=== PATIENT | male | born 1955 | race Caucasian/White ===

== ENCOUNTER 2019-02-03 10:50 | Observation (INO) | payer OTHER ==
--- OUTSIDE RECORDS SUMMARY | 2019-02-03 10:57 | XMS REPORT | Summary of Care ---
:1955 Author Organization [facility] [place] [address] Care Team Providers Name Role Phone Ramesh Otoole MD Subspecialist-[facility] Tommy Oleary MD Primary Care Provider Reason for Visit Reason Comments Follow Up Encounter Details Date Type Department Care Team Description 12/13/2018 Office Visit [facility] Ramesh Otoole MD Follow Up Medicine Urology [address] [place] [address] [address] FLO[address], [address], [place] [address] [place] [id number] Allergies Active Allergy Reactions Severity Noted Date Comments Iodides Swelling 06/03/2014 Iodine 10/19/2011 documented as of this encounter (statuses as of 12/13/2018) Medications Medication Sig Dispensed Refills Start Date End Date Status TRAMADOL HCL 0 Active sildenafil citrate Take 1 Tab by 15 Tab 11 01/08/2015 Active (VIAGRA) 100 MG mouth as tablet needed. tramadol (ULTRAM) 50 Take 1-2 40 Tab 0 01/19/2018 Active MG tablet tablets by mouth every 4-6 hours as needed testosterone Inject 0.6 ml 5 mL 0 09/21/2018 Active enanthate SQ every 7 (DELATESTRYL) 200 days MG/ML injection metoprolol (TOPROL Toprol XL 50 mg tablet,extended release 0 Active XL) 50 MG XL tablet Take 1 tablet every day by oral route. TAKE DAILY FOR BLOOD PRESSURE ondansetron (ZOFRAN) Take 1 Tab by 15 Tab 1 12/30/2017 Discontinued 4 MG tablet mouth every 6 9 hours as needed for Nausea. Diclofenac Sodium Place 3 g onto 100 g 1 01/05/2018 Discontinued (VOLTAREN) 1 % GEL the skin 3 9 times daily. cyclobenzaprine Take 1 Tab by 30 Tab 0 01/19/2018 Discontinued (FLEXERIL) 10 MG mouth 3 times 9 tablet daily as needed for Muscle spasms. documented as of this encounter (statuses as of 12/13/2018) Active Problems Problem Noted Date Rotator cuff tear 10/04/2017 Phimosis 08/29/2012 Nephrolithiasis 11/13/2011 Hematuria 10/19/2011 documented as of this encounter (statuses as of 12/13/2018) Social History Tobacco Use Types Packs/Day Years Used Date Never Smoker Smokeless Tobacco: Never Used Alcohol Use Drinks/Week oz/Week Comments No Sex Assigned at Date Recorded Not on file Job Start Date Occupation Industry Not on file Not on file Not on file Travel History Travel Start Travel End No recent travel history available. documented as of this encounter Last Filed Vital Signs Vital Sign Reading Time Taken Comments Blood Pressure 166/91 12/13/2018 9:59 AM CDT Pulse - - Temperature - - Respiratory Rate - - Oxygen Saturation - - Inhaled Oxygen Concentration - - Weight - - Height - - Body Mass Index - - documented in this encounter Progress Notes Ramesh Otoole MD - 12/13/2018 9:20 AM CDTI have seen and examined the patient with Kailash Mathews. I agree with the assessment and plan. I have the counseled the patient and will follow- up with lab and next steps. Johann Narvaez PA - 12/13/2018 9:20 AM CDT Referring Physician Blanco Guillaume [address] [place], [place] [id number] Patient Name: Thor Sims :1955 [facility] ID#:[id number] Mr. Sims is a 63 y.o. year old male who present to me for ED, renal stones, and hypogonaidsm. 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 He is still taking TE (0.6 cc) 120 mg every week and is compliant. States headaches resolved with the TTh. Patient states he is taking Viagra 110mg and is effective. Reports good quality erections. He has a history of nephorlithiaisis and no recurrence since last visit. He reports nocturia x 3 at most. Denies dysuria, hematuria, frequency. States nocturia x 1 if he does not drink tea. No family hx of argon tester. Past Medical History: Diagnosis Date Arthritis, degenerative Cauda equina compression (HCCode) needing a laminectomy in 1997, residual mild neuropathy Head ache Sleep apnea 2012 non compliant with a CPAP machine Past Surgical History: Procedure Laterality Date HX BACK SURGERY 1997 Medications: Current Outpatient Medications: cyclobenzaprine (FLEXERIL) 10 MG tablet, Take 1 Tab by mouth 3 times daily as needed for Musclespasms., Disp: 30 Tab, Rfl: 0 Diclofenac Sodium (VOLTAREN) 1 % GEL, Place 3 g onto the skin 3 times daily., Disp: 100 g, Rfl:1 ondansetron (ZOFRAN) 4 MG tablet, Take 1 Tab by mouth every 6 hours as needed for Nausea., Disp: 15 Tab, Rfl: 1 sildenafil citrate (VIAGRA) 100 MG tablet, Take 1 Tab by mouth as needed., Disp: 15 Tab, Rfl: 11 testosterone enanthate (DELATESTRYL) 200 MG/ML injection, Inject 0.6 ml SQ every 7 days, Disp: 5 mL, Rfl: 0 tramadol (ULTRAM) 50 MG tablet, Take 1-2 tablets by mouth every 4-6 hours as needed, Disp: 40 Tab, Rfl: 0 TRAMADOL HCL, , Disp: , Rfl: Outpatient Medications Prior to Visit Medication Sig Dispense Refill cyclobenzaprine Take 1 Tab by mouth 3 times daily as needed for Muscle spasms. 30 Tab [address] 3 g onto the skin 3 times daily. 100 g 1 ondansetron Take 1 Tab by mouth every 6 hours as needed for Nausea. 15 Tab 1 sildenafil citrate Take 1 Tab by mouth as needed. 15 Tab 11 testosterone enanthate Inject 0.6 ml SQ every 7 days 5 mL 0 tramadol Take 1-2 tablets by mouth every 4-6 hours as needed 40 Tab 0 TRAMADOL HCL No facility-administered medications prior to visit. Social History Socioeconomic History Marital status: Spouse name: Not on file Number of children: Not on file Years of education: Not on file Highest education level: Not on file Occupational History Not on file Social Needs Financial resource strain: Not on file Food insecurity: Worry: Not on file Inability: Not on file Transportation needs: Medical: Not on file Non-medical: Not on file Tobacco Use Smoking status: Never Smoker Smokeless tobacco: Never Used Substance and Sexual Activity Alcohol use: No Drug use: No Sexual activity: Not on file Lifestyle Physical activity: Days per week: Not on file Minutes per session: Not on file Stress: Not on file Relationships Social connections: Talks on phone: Not on file Gets together: Not on file Attends nondenominational service: Not on file Active member of club or organization: Not on file Attends meetings of clubs or organizations: Not on file Relationship status: Not on file Intimate partner violence: Fear of current or ex partner: Not on file Emotionally abused: Not on file Physically abused: Not on file Forced sexual activity: Not on file Other Topics Concerns: Not on file Social History Narrative 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 Children are grown and healthy and have moved out of his home. family history includes Brain cancer (age of onset: 62) in his father; Heart Attack (age of onset: 62) in his brother; Unremarkable (age of onset: 79) in his mother. Allergies Allergen Reactions Iodides Swelling Iodine Review of Systems: GENERAL: Denies recent weight changes, fever, weakness, fatigue, headaches INTEGUMENTARY: Denies rashes, eruptions, dryness, jaundice, changes in skin, hair, or nails, discoloration of skin. EYES: Denies blurred vision, double vision, pain EARS, NOSE, MOUTH AND THROAT: Denies soreness and/or redness of gums, hoarseness, difficulty in swallowing, head colds, discharges, obstruction, postnasal drip, sinus pain, earaches. MUSCULOSKELATAL: Denies joint pain, neck pain, back pain RESPIRATORY: Denies chest pain, wheezing, cough, difficulty breathing, asthma, bronchitis, pneumonia, tuberculosis, shortness of breath, emphysema NEUROLOGIC: Denies fainting, blackouts, seizures, paralysis, tingling, tremors, memory loss , dizzy spells, stroke CARDIOVASCULAR: Denies chest pain, rheumatic fever, rapid heart beat, high blood pressure, swelling, dizziness, faintness, varicose veins, heart valve problems. ENDOCRINE: Denies thyroid trouble, fatigue, heat and cold intolerance, excessive sweating, thirst, hunger GASTROINTESTINAL: Denies nausea, vomiting, diarrhea, constipation, indigestion, food intolerance, hemorrhoids, jaundice, heartburn, diabetes, hepatitis GENITOURINARY: As per HPI HEMATOLOGIC/LYMPHATIC: Denies anemia, easy bruising or bleeding, past transfusion, swollen glands, blood clotting problems PSYCHOLOGIC: Denies nervousness, mood swings, insomnia, headaches, nightmares, depression ALLERGY/IMMUNOLOGIC: Denies food allergies, plant allergies, environmental allergies OTHER: Denies HIV/AIDS Physical Exam: Vitals: 12/13/18 0959 BP: (!) 166/91 BP Location: right arm Patient Position: Sitting Cuff Size: regular GENERAL: Well developed, well nourished, in no acute distress HEAD: Normocephalic and atraumatic SKIN: Intact without lesions or rashes BIANCA: 40 gram prostate, no asymmetry, nodules, or induration, normal external anal sphincter tone NEURO: CARRION well. Patient alert and oriented x3. PSYCH: Alert and cooperative; normal mood and affect; normal attention span and concentration Most Recent Labs: Recent Results (from the past 4032 hour(s)) TESTOSTERONE, FREE/TOTAL SHGB Collection Time: 07/25/18 9:08 AM Result Value Ref Range TESTOSTERONE LEVEL 1,236 (H) 300 - 720 NG/DL SEX HORMONE BINDING GLOBULIN 40.7 19.3 - 76.4 NMOL/L CALC FREE TESTOSTERONE 280.5 (H) 47.0 - 244.0 PG/ML HEMOGLOBIN AND HEMATOCRIT, BLOOD Collection Time: 07/25/18 9:08 AM Result Value Ref Range HEMOGLOBIN 15.5 13.0 - 17.0 G/DL HEMATOCRIT 47.3 37.0 - 49.0 % Assessment: Gross hematuria ED Hypogonaidsm BPH Plan: -Refill Tadalafil 7 mg QD > [facility] -Refill Sildenafil 110 mg on demand > [facility] -TE (0.75cc) 150 mg every week > [facility] T,ft,e, psa f/h, A1c, H/H FU in 6 months CHAI vEans, PA-C 12/13/2018 documented in this encounter Plan of Treatment Name Type Priority Associated Diagnoses Order Schedule TESTOSTERONE-TOTAL(URO Lab Routine Hypogonadism male Expected: 12/27/2018 DEPT) Hypogonadism in male (Approximate), Malaise and fatigue Expires: 01/12/2019 Male hypogonadism SHBG(URO DEPT) Lab Routine Hypogonadism male Expected: 12/27/2018 Hypogonadism in male (Approximate), Malaise and fatigue Expires: 01/12/2019 Male hypogonadism ESTRADIOL(URO DEPT) Lab Routine Hypogonadism male Expected: 12/27/2018 Hypogonadism in male (Approximate), Malaise and fatigue Expires: 01/12/2019 Male hypogonadism PSA TOTAL(URO DEPT) Lab Routine Hypogonadism male Expected: 12/27/2018 Hypogonadism in male (Approximate), Malaise and fatigue Expires: 01/12/2019 Male hypogonadism HEMOGLOBIN AND Lab Routine Hypogonadism male Ordered: 12/13/2018 HEMATOCRIT, BLOOD Hypogonadism in male Malaise and fatigue Male hypogonadism HEMOGLOBIN A1C Lab Routine Hypogonadism male Ordered: 12/13/2018 Hypogonadism in male Malaise and fatigue Male hypogonadism Health Maintenance Due Date Last Done Comments COLON CANCER SCREENING: COLONOSCOPY 1955 MEDICARE AWV 1955 BMI FOLLOW UP PLAN 02/22/1974 HEPATITIS C SCREENING 02/22/1974 HIV SCREENING 02/22/1974 FLU VACCINE > 6 MONTHS 10/20/2018 TETANUS SHOT (ADULT) 12/29/2025 12/30/2015 documented as of this encounter Results Not on filedocumented in this encounter Visit Diagnoses Diagnosis Hypogonadism male - Primary Other testicular hypofunction Hypogonadism in male Malaise and fatigue Other malaise and fatigue Male hypogonadism Other testicular hypofunction documented in this encounter Insurance Payer Benefit Plan / Subscriber ID Effective Dates Phone Address Type Group MEDICARE MEDICARE PART A xxxxxxxxxx 2013-Present [address] Medicare [place] [address] documented as of this encounter
--- OUTSIDE RECORDS SUMMARY | 2019-02-03 10:57 | XMS REPORT ---
:1955 [facility] Address [address] [place] [address] Care Team Providers Name Role Phone DEMARCO OSWALD Unavailable Unavailable Problems This patient has no known problems. Allergies, Adverse Reactions, Alerts This patient has no known allergies or adverse reactions. Medications This patient has no known medications. Results Test Description Test Time Test Comments Text Results Atomic Results Result Comments ELECTROLYTES 2017-12-27 09:19:00 Test Item Value Reference Range Comments SODIUM (BEAKER) (test aucd=878) 140 meq/L 136-145 POTASSIUM (BEAKER) (test nhmv=929) 4.9 meq/L 3.5-5.1 CHLORIDE (BEAKER) (test giok=337) 103 meq/L 98-107 CO2 (BEAKER) (test ctzq=226) 29 meq/L 22-29 BUN AND [id number] 09:19:00 Test Item Value Reference Range Comments BLOOD UREA NITROGEN 12 mg/dL 7-21 (BEAKER) (test uoit=580) CREATININE (BEAKER) (test 1.09 mg/dL 0.57-1.25 ctob=709) EGFR (BEAKER) (test 69 mL/min/1.73 sq m ESTIMATED GFR IS NOT vggm=5497) ACCURATE CREATININE CLEARANCE IN PREDICTING GLOMERULAR FILTRATION RATE. ESTIMATED GFR IS NOT APPLICABLE FOR DIALYSIS PATIENTS. [id number] 09:01:00 Test Item Value Reference Range Comments HEMOGLOBIN (BEAKER) (test sibp=236) 16.9 GM/DL 13.7-17.5
--- OUTSIDE RECORDS SUMMARY | 2019-02-03 10:57 | XMS REPORT | Encounter Summary ---
:1955 Author Care Team Providers Name Role Phone Tommy Oleary MD Primary Care Provider [phone] Reason for Visit new patient Instructions 1. Benign essential hypertension high blood pressure: care instructions learning about high blood pressure CMP, serum or plasma CBC w/ auto diff lipid panel, serum benazepril 20 mg tablet 2. Chronic back pain greater than three months duration tramadol 50 mg tablet 3. Screening for malignant neoplasm of colon general surgery referral 4. History of calculus of kidney PSA, serum or plasma 5. Chronic headache disorder Discussion Note: None recorded. Plan of Care Reminders Provider Appointments Return to on or around Tommy Oleary MD Office 06/13/2018 Lab CMP, Serum 06/06/2018 [place] or Plasma [facility] (Lab) CBC W/ Auto 06/06/2018 [place] Diff [facility] (Lab) Lipid 06/06/2018 [place] Panel, Serum [facility] (Lab) PSA, Serum 06/06/2018 [place] or Plasma [facility] (Lab) Referral General 06/02/2018 Jlu[facility] Mendo[facility] II Surgery Referral Procedures None recorded. Surgeries None recorded. Imaging None recorded. Medications Name Start Date benazepril 20 mg tablet Take 2 tablets every day by oral route. take for blood pressure tramadol 50 mg tablet Take 2 tablets every day by oral route. Medications Administered None recorded. Vitals Height Weight BMI Blood Pressure 67 in 207 lbs 16 oz 32.6 kg/m2 160/82 mm[Hg] Lab Results None recorded. Allergies Code Code System Name Reaction Severity Status Onset 5933 RxNorm Iodine Other Active Problems Name Status Onset Date Source Essential Hypertension Active 05/17/2018 Benign Essential Hypertension Active 05/17/2018 Chronic Back Pain Greater than Three Months Active 05/17/2018 Duration Chronic Headache Disorder Active 05/17/2018 History of Calculus of Kidney Active 05/17/2018 Screening for Malignant Neoplasm of Colon Active 05/17/2018 Procedures Date Name Performed by Back Surgery Information not available Shoulder Surgery Procedure Information not available Vaccine List None recorded. Social History Smoking Status Never Smoker Past Encounters 05/17/2018 Benign Essential Hypertension; Chronic Back Pain Greater than Three Months Duration; Screening for Malignant Neoplasm of Colon; History of Calculus of Kidney; Chronic Headache Disorder Tommy Oleary MD: [address] [place] [address], [address], [place] [address], Ph. 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<div>non smoker no drinker</div><div>needs c scope </div><div>does not take flu shot</div><div> recent left shoulder surg for torn rotator cuff</div><div>back surg 15 yr ago</div><div>CC htnb</div><div>hpi x 10 yrs on meds needs to monitor</div><div>CC chronic headaches</div>< div>hpi when found to have low testosterone started taking shots and cured his headaches</div><div>CC seasonal allergies</div><div> [place] uses honey prn</div><div>ros</div><div>gen healthy </div& gt;<div>cv above</div><div>resp neg</div><div>gi neg</div><div>guneg</div><div>m/s above</div> Review of Systems: ROS as noted in the HPI Review of Systems None recorded. Physical Exam Dr. Oleary Brief Adult Exam - M/F Reported By: Patient Constitutional: General Appearance: well-developed, overweight. Level of Distress: NAD. Ambulation: ambulating normally ENMT: Ears: no lesions on external ear, EACs clear, TMs clear, TM mobility normal. Nose: nares patent, nasal passages clear. Oropharynx: moist mucous membranes, no erythema, no exudates, tonsils not enlarged Neck: Neck: supple, trachea midline, no masses, FROM. Lymph Nodes: no cervical LAD, no supraclavicular LAD Lungs: Auscultation: breath sounds normal, good air movement, CTA except as noted, no wheezing, no rales/crackles, no rhonchi Cardiovascular: Heart Auscultation: RRR, no murmurs, no rubs, no gallops. Neck vessels: no carotid bruits Abdomen: Bowel Sounds: normal. Inspection and Palpation: soft, non-distended, no tenderness, no guarding, no rebound tenderness, no masses, no CVA tenderness. Hernia: none palpable
--- OUTSIDE RECORDS SUMMARY | 2019-02-03 10:57 | XMS REPORT | Encounter Summary ---
:1955 Author Care Team Providers Name Role Phone Tommy Oleary MD Primary Care Provider [phone] Reason for Visit medication refill Instructions 1. Essential hypertension amlodipine 5 mg tablet 2. Chronic back pain greater than three months duration tramadol 50 mg tablet Discussion Note: None recorded.Patient educational handouts: No information available. Plan of Care Reminders Provider Appointments Return to on or around Tommy Oleary MD Office 11/22/2018 Return to on or around Tommy Oleary MD Office 11/22/2018 Follow up 12/06/2018 Tommy Oleary MD 8:15AM Return to on or around Tommy Oleary MD Office 12/08/2018 Lab None recorded. Referral None recorded. Procedures None recorded. Surgeries None recorded. Imaging None recorded. Medications Name Start Date amlodipine 5 mg tablet Take 1 tablet every day by oral route. take in addition to the benicar daily for bp stop if causes swelling benazepril 20 mg tablet Take 2 tablets every day by oral route. tramadol 50 mg tablet Take 2 tablets every day by oral route. Medications Administered None recorded. Vitals Height Weight BMI Blood Pressure 67 in 209 lbs 32.7 kg/m2 163/84 mm[Hg] Lab Results None recorded. Allergies Code [...] History Smoking Status Never Smoker Past Encounters 08/22/2018 Essential Hypertension; Chronic Back Pain Greater than Three Months Duration Tommy Oleary MD: [address] [place] [address], [address], [place] [address], Ph. [phone] History of Present Illness Note: here for reg visit<div>cc chronic arthritis pain</div>< div>hpi has c spine andl spine disc problems takes 2 tramadol daily and ecedrin daily has been doing x 10 yrs</div><div>cc seasonal allergies</div><div>hpi uses prn otc meds</div><div>cc htnb</div><div>hpi has been up for yrs is better now since i increased the meds</div><div>ros </div><div>gen stable& lt;/div><div>cv bp high </div><div>resp neg</div>< div>m/s above</div>Review of Systems: ROS as noted in the HPI Review of Systems None recorded. Physical Exam Dr. Oleary Brief Adult Exam - M/F Reported By: Patient Constitutional: General Appearance: healthy-appearing, well-nourished, well-developed. Level of Distress: NAD. Ambulation: ambulating normally Neck: Neck: supple, trachea midline, no masses, FROM. Lymph Nodes: no cervical LAD, no supraclavicular LAD Lungs: Auscultation: breath sounds normal, good air movement, CTA except as noted, no wheezing, no rales/crackles, no rhonchi Cardiovascular: Heart Auscultation: RRR, no rubs, no gallops. Neck vessels: no carotid bruits Musculoskeletal: Edema absent; pain in neck on rom and low back pain without radiculopathy
--- OUTSIDE RECORDS SUMMARY | 2019-02-03 10:57 | XMS REPORT | Encounter Summary ---
:1955 Author Care Team Providers Name Role Phone Tommy Oleary MD Primary Care Provider [phone] Reason for Visit Follow Up Visit Instructions 1. Benign essential hypertension high blood pressure: care instructions learning about high blood pressure Discussion Note: None recorded. Plan of Care Reminders Provider Appointments Follow up 12/06/2018 Tommy Oleary MD 8:15AM Return to on or around Tommy Oleary MD Office 12/08/2018 Lab None recorded. Referral None recorded. Procedures None recorded. Surgeries None recorded. Imaging None recorded. Medications Name Start Date benazepril 20 mg tablet Take 2 tablets every day by oral route. Medications Administered None recorded. Vitals Height Weight BMI Blood Pressure 67 in 202 lbs 16 oz 31.8 kg/m2 148/84 mm[Hg] Lab Results None recorded. Allergies Code [...] History Smoking Status Never Smoker Past Encounters 06/07/2018 Benign Essential Hypertension Tommy Oleary MD: [address] [facility], [address], [place] [address], Ph. 05/17/2018 Benign Essential Hypertension; Chronic Back Pain Greater than Three Months Duration; Screening for Malignant Neoplasm of Colon; History of Calculus of Kidney; Chronic Headache Disorder Tommy Oleary MD: [address] [facility], [address], [place] [address], Ph. History of Present Illness Note: CC htnb<div>hpi here to check bp since increasing meds doing much better and feeling better</div><div>CC elevated "iron</div& gt;<div>HPI urologist states testosterone raising his Hgb so giving blood weekly until < 50 </div><div>ros</div><div> feeling fine</div><div>cv bp improved</div><div>resp neg </div><div>gi neg</div><div>m/s neg</div>Review of Systems: ROS as noted in the [...] Cardiovascular: Heart Auscultation: RRR, no rubs, no gallops
--- OUTSIDE RECORDS SUMMARY | 2019-02-03 10:57 | XMS REPORT | Encounter Summary ---
:1955 Author Care Team Providers Name Role Phone Tommy Oleary MD Primary Care Provider [phone] Reason for Visit Follow Up Visit Instructions 1. Benign essential hypertension high blood pressure: care instructions learning about high blood pressure Toprol XL 50 mg tablet,extended release 2. Chronic back pain greater than three months duration Discussion Note: None recorded. Plan of Care Reminders Provider Appointments Follow up 03/13/2019 Tommy Oleary MD 9:15AM Lab None recorded. Referral None recorded. Procedures None recorded. Surgeries None recorded. Imaging None recorded. Medications Name Start Date benazepril 20 mg tablet Take 2 tablets every day by oral route. testosterone enanthate 200 mg/mL intramuscular oil Toprol XL 50 mg tablet,extended release Take 1 tablet every day by oral route. TAKE DAILY FOR BLOOD PRESSURE tramadol 50 mg tablet TAKE 2 TABLETS BY MOUTH ONCE DAILY Medications Administered None recorded. Vitals Height Weight BMI Blood Pressure 67 in 207 lbs 16 oz 32.6 kg/m2 162/93 mm[Hg] Lab Results None recorded. Allergies Code [...] available Vaccine List None recorded. Social History Tobacco Smoking Status Never Smoker Past Encounters 12/12/2018 Benign Essential Hypertension; Chronic Back Pain Greater than Three Months Duration Tommy Oleary MD: [address] [place] [address] [address], [place] [address], Ph. [phone] History of Present Illness Note: cc HTNB<div>HPI D/RAMSEY THE AMLODIPINE DUE TO SWELLING AND HEADACHE BACK ON THE BENAZOPRIL AND CHECKING BP AT HOME IN THE 150S/80S</div& gt;<div>ROS</div><div>GEN FEELS FINE</div><div>CV ABOVE</div><div>RESP NEG</div>Review of Systems: ROS as noted in the HPI Review of Systems None recorded. Physical Exam Dr. Oleary Brief Adult Exam - M/F Reported By: Patient Constitutional: General Appearance: healthy-appearing, well-nourished, well-developed. Level of Distress: NAD. Ambulation: ambulating normally Lungs: Auscultation: breath sounds normal, good air movement, CTA except as noted, no wheezing, no rales/crackles, no rhonchi Cardiovascular: Heart Auscultation: RRR, no murmurs, no rubs, no gallops. Neck vessels: no carotid bruits
--- OUTSIDE RECORDS SUMMARY | 2019-02-03 10:57 | XMS REPORT | Encounter Summary ---
:1955 Author Care Team Providers Name Role Phone Tommy Oleary MD Primary Care Provider [phone] Reason for Visit Fatigue-sometimes Instructions 1. Seasonal allergy seasonal allergies: care instructions dexamethasone 10 mg/mL injection solution Depo-Medrol 40 mg/mL suspension for injection 2. Benign essential hypertension high blood pressure: care instructions learning about high blood pressure CBC w/ auto diff CMP, serum or plasma lipid panel, serum 3. Strain of back muscle 4. Adult health examination PSA, serum or plasma TSH, serum or plasma hemoglobin A1c, QN, blood Discussion Note: None recorded. Plan of Care Reminders Provider Appointments Follow up Tommy Oleary MD 03/13/2019 9:15AM Lab CBC W/ Auto Beatty Diff 02/02/2019 [facility] (Labs) (Xray) CMP, Serum or Beatty Plasma 02/02/2019 [facility] (Labs) (Xray) Lipid Panel, Beatty Serum 02/02/2019 [facility] (Labs) (Xray) PSA, Serum or Beatty Plasma 02/02/2019 [facility] (Labs) (Xray) TSH, Serum or Beatty Plasma 02/02/2019 [facility] (Labs) (Xray) Hemoglobin Beatty a1C, QN, Blood 02/02/2019 [facility] (Labs) (Xray) Referral None recorded. Procedures None recorded. Surgeries None recorded. Imaging None recorded. Medications Name Start Date benazepril 20 mg tablet Take 2 tablets every day by oral route. hydrochlorothiazide 25 mg tablet Take 1 tablet every day by oral route. testosterone enanthate 200 mg/mL intramuscular oil tramadol 50 mg tablet TAKE 2 TABLETS BY MOUTH ONCE DAILY Medications Administered None recorded. Vitals Height Weight BMI Blood Pressure 67 in 210 lbs 16 oz 33 kg/m2 160/92 mm[Hg] Results Lab Results None recorded. Allergies Code Code System Name Reaction Severity Status Onset 5933 RxNorm Iodine Other Active Problems Name Status Onset Date Source Essential Hypertension Active 05/17/2018 Benign Essential Hypertension Active 05/17/2018 Chronic Back Pain Greater than Three Months Active 05/17/2018 Duration Chronic Headache Disorder Active 05/17/2018 History of Calculus of Kidney Active 05/17/2018 Screening for Malignant Neoplasm of Colon Active 05/17/2018 Seasonal Allergy Active 02/02/2019 Procedures Date Name Performed by Back Surgery Information not available Shoulder Surgery Procedure Information not available Vaccine List None recorded. Social History Tobacco Smoking Status Never Smoker Past Encounters 02/02/2019 Seasonal Allergy; Benign Essential Hypertension; Strain of Back Muscle; Adult Health Examination Tommy Oleary MD: [address] [place] [address] [address], [place] [address], Ph. History of Present Illness Note: CC seasonal allergies<div>hpi head congestion and cough</div& gt;<div>cc htnb</div><div>hpi ok at home only on benazopril now</div><div>ros</div><div>gen above</div><div >cv neg</div><div>resp neg</div><div>gi neg</div& gt;<div>m/s mid back pain</div>Review of Systems: ROS as noted in the HPI Review of Systems None recorded. Physical Exam Dr. Oleary Brief Adult Exam - M/F Reported By: Patient Constitutional: General Appearance: well-developed, overweight. Level of Distress: mild distress. Ambulation: ambulating normally ENMT: Ears: no lesions on external ear, EACs clear, TMs clear, TM mobility normal. Nose: nares patent, nasal passages clear; rhinorrhea and max sinus pressure. Oropharynx: moist mucous membranes, no erythema, no exudates, tonsils not enlarged Lungs: Auscultation: breath sounds normal, good air movement, CTA except as noted, no wheezing, no rales/crackles, no rhonchi Cardiovascular: Heart Auscultation: RRR, no rubs, no gallops Back: Thoracolumbar Appearance: normal curvature; soreness across mid back
[2019-02-03 11:39] LABS: Protime INR 1.03
[2019-02-03 11:54] LABS: Absolute Lymphocytes (CBC) 1.5 K/uL (0.7-4.9); Hematocrit 48.3 % (39.6-49.0); Lymphocytes % 10.3 % (15.3-44.8); RBC Red Blood Cell Count 6.45 M/uL (4.33-5.43)
[2019-02-03 11:55] LABS: Bilirubin Direct 0.2 mg/dL (0-0.2); Bilirubin Total 0.5 mg/dL (0.2-1.0); Magnesium 2.4 mg/dL (1.8-2.4); Potassium 3.7 mmol/L (3.5-5.1); Protein, Total 7.7 g/dL (6.4-8.2); Troponin (Emerg Dept Use Only) 0.02 ng/mL (0.0-0.045)
--- NOTE | 2019-02-03 12:01 | RAD REPORT ---
EXAM DESCRIPTION: Shaheen Single View02/03/2019 11:49 am CLINICAL HISTORY: Chest pain COMPARISON: none FINDINGS: The lungs appear clear of acute infiltrate. The heart is normal size IMPRESSION: No acute abnormalities displayed
[2019-02-03] MEDS ORDERED: ASPIRIN 81 MG CHEWABLE TABLET ONE (12:07)
--- NOTE | 2019-02-03 12:51 | ER ---
Nurse's Notes [facility] Name: Thor Sims Age: 63 yrs Sex: Male : 1955 Arrival Date: 02/03/2019 Time: 10:51 Bed Ultrasound Private MD: Diagnosis: Chest pain, unspecified Presentation: 02/03 11:01 Presenting complaint: Patient states: i was getting dressed this morning and i started tw2 having chest pain and feel short of breath, i have been weak and fatigued for a week or so. Transition of care: patient was not received from another setting of care. Onset of symptoms was February 03, 2019. Risk Assessment: Do you want to hurt yourself or someone else? Patient reports no desire to harm self or others. Initial Sepsis Screen: Does the patient meet any 2 criteria? No. Patient's initial sepsis screen is negative. Does the patient have a suspected source of infection? No. Patient's initial sepsis screen is negative. Care prior to arrival: None. 11:01 Method Of Arrival: Ambulatory tw2 11:01 Acuity: JASON 3 tw2 Triage Assessment: 11:04 General: Appears in no apparent distress. Behavior is quiet. Pain: Complains of pain in tw2 chest. Neuro: Reports weakness fatigue. Cardiovascular: Reports chest pain, shortness of breath. Historical: - Allergies: 11:03 Iodinated Contrast Media - IV Dye; tw2 11:03 Iodine; tw2 - Home Meds: 11:03 testosterone injection, weekly [Active]; "hypertension med" [Active]; tw2 - PMHx: 11:03 Hypertension; tw2 - Immunization history:: Adult Immunizations. - Social history:: Smoking status: Smoking status: Patient/guardian denies using tobacco. - Ebola Screening: : Patient denies travel to an Ebola-affected area in the 21 days before illness onset. Screenin:20 Abuse screen: Denies threats or abuse. Denies injuries from another. Nutritional ca1 screening: No deficits noted. Tuberculosis screening: No symptoms or risk factors identified. Fall Risk IV access (20 points). Assessment: 11:20 General: Appears in no apparent distress. comfortable, Behavior is calm, cooperative, ca1 appropriate for age, Reports fatigue for for 3 weeks now. Pain: Complains of pain in chest Pain radiates to left scapular area and right scapular area Pain currently is 7 out of 10 on a pain scale. Quality of pain is described as heavy, pressure, sharp, Pain began 3 hours ago. Is continuous, Also complains of shortness of breath. Neuro: Level of Consciousness is awake, alert, obeys commands, Oriented to person, place, time, situation, Appropriate for age. Neuro: Reports dizziness, upon standing just this morning. Cardiovascular: Reports palpitations, Heart tones S1 S2 present Capillary refill < 3 seconds Patient's skin is warm and dry. Rhythm is sinus rhythm. Respiratory: Airway is patent Trachea midline Respiratory effort is even, unlabored, Respiratory pattern is regular, symmetrical, Breath sounds are clear bilaterally. GI: Abdomen is round non-distended, Bowel sounds present X 4 quads. Abd is soft and non tender X 4 quads. : No deficits noted. No signs and/or symptoms were reported regarding the genitourinary system. EENT: No deficits noted. No signs and/or symptoms were reported regarding the EENT system. Derm: Skin is intact, is healthy with good turgor, Skin is pink, warm \\T\\ dry. Musculoskeletal: Circulation, motion, and sensation intact. Capillary refill < 3 seconds, Range of motion: intact in all extremities. 12:30 Reassessment: Patient appears in no apparent distress at this time. Patient and/or ca1 family updated on plan of care and expected duration. Pain level reassessed. Patient is alert, oriented x 3, equal unlabored respirations, skin warm/dry/pink. 13:39 Reassessment: Patient appears in no apparent distress at this time. Patient and/or ca1 family updated on plan of care and expected duration. Pain level reassessed. Patient is alert, oriented x 3, equal unlabored respirations, skin warm/dry/pink. 13:50 Reassessment: Called for report. Nurse will call back. ca1 14:03 Reassessment: Patient appears in no apparent distress at this time. Patient and/or ca1 family updated on plan of care and expected duration. Pain level reassessed. Patient is alert, oriented x 3, equal unlabored respirations, skin warm/dry/pink. Vital Signs: 11:04 BP 141 / 76; Pulse 92; Resp 17; Temp 97.9(O); Pulse Ox 98% on R/A; Weight 95.71 kg (R); tw2 Pain 5/10; 12:00 BP 137 / 73; Pulse 79; Resp 17 S; Pulse Ox 97% on R/A; ca1 13:00 BP 138 / 82; Pulse 82; Resp 17 S; Pulse Ox 100% on R/A; ca1 14:03 BP 139 / 83; Pulse 76; Resp 17 S; Pulse Ox 97% on R/A; ca1 ED Course: 10:51 Patient arrived in ED. as 11:02 Triage completed. tw2 11:02 Arm band placed on. tw2 11:06 EKG done, by bindery library technical assistant. reviewed by Karson Brunson MD. at1 11:14 Ligia Li RN is Primary Nurse. ca1 11:20 Patient has correct armband on for positive identification. Placed in gown. Bed in low ca1 position. Call light in reach. Side rails up X 1. secured entrance monitor on. Pulse ox on. NIBP on. Warm blanket given. 11:20 No provider procedures requiring assistance completed. Patient maintains SpO2 ca1 saturation greater than 95% on room air. 11:24 Initial lab(s) drawn, by fl, sent to lab. Inserted saline lock: 20 gauge in left ms forearm, using aseptic technique. Blood collected. 11:49 Yuli Lemus FNP-C is [facility]. snw 11:49 Karson Brunson MD is Attending Physician. snw 11:50 XRAY Chest (1 view) In Process Unspecified. EDMS 12:50 Simon Preciado MD is Hospitalizing Provider. snw 13:39 Patient admitted, IV remains in place. ca1 14:09 Primary Nurse role handed off by Ligia Li RN ca1 Administered Medications: 12:12 Drug: Aspirin Chewable Tablet 324 mg Route: PO; ca1 13:48 Follow up: Response: No adverse reaction ca1 Outcome: 12:51 Decision to Hospitalize by Provider. snw 14:07 Admitted to Tele accompanied by tech, via wheelchair, room 428, with chart, Report ca1 called to OSWALDO Velazquez 14:07 Condition: stable 14:07 Instructed on the need for admit. 14:08 Patient left the ED. ca1 14:20 Patient left the ED. ca1 Signatures: Dispatcher [employer] EDMS Yuli Lemus FNP-C EMERGENCY VEHICLE OPERATIONS INSTRUCTOR-Ines Alexandra Maria ms Charles, Gretchen, crane operator EKG Tat1 Zari Mejia, RN RN tw2 Ligia Li, RN RN ca1
--- NOTE | 2019-02-03 12:51 | EDPHYS ---
Physician Documentation [facility] Name: Thor Sims Age: 63 yrs Sex: Male : 1955 Arrival Date: 02/03/2019 Time: 10:51 Bed Ultrasound Private MD: ED Physician Karson Brunson HPI: 02/03 12:34 This 63 yrs old Male presents to ER via Ambulatory with complaints of Chest snw Pain. 12:34 The patient or guardian reports chest pain that is located primarily in the substernal snw area. Onset: suddenly, this morning. The pain radiates to neck, left jaw, back. Associated signs and symptoms: Pertinent positives: dizziness, lightheadedness, shortness of breath. The chest pain is described as a pressure, with sharp pains intermittently. Duration: The patient or guardian reports a single episode, that is now resolved. Modifying factors: The symptoms are alleviated by nothing. the symptoms are aggravated by exertion . Severity of pain: At its worst the pain was moderate severe. The patient has not experienced similar symptoms in the past. no, pt sees PCP in [place], c/o malaise/fatigue x several weeks. Historical: - Allergies: 11:03 Iodinated Contrast Media - IV Dye; tw2 11:03 Iodine; tw2 - Home Meds: 11:03 testosterone injection, weekly [Active]; "hypertension med" [Active]; tw2 - PMHx: 11:03 Hypertension; tw2 - Immunization history:: Adult Immunizations. - Social history:: Smoking status: Smoking status: Patient/guardian denies using tobacco. - Ebola Screening: : Patient denies travel to an Ebola-affected area in the 21 days before illness onset. ROS: 12:33 Constitutional: Negative for fever, chills, and weight loss, Eyes: Negative for injury, snw pain, redness, and discharge, ENT: Negative for injury, pain, and discharge, Neck: Negative for injury, pain, and swelling. 12:33 Abdomen/GI: Negative for abdominal pain, nausea, vomiting, diarrhea, and constipation, Back: Negative for injury and pain, : Negative for injury, bleeding, discharge, and swelling, MS/Extremity: Negative for injury and deformity, Skin: Negative for injury, rash, and discoloration. 12:33 Cardiovascular: Positive for chest pain. 12:33 Respiratory: Positive for shortness of breath, on exertion. 12:33 Neuro: Positive for dizziness. Exam: 12:29 Constitutional: This is a well developed, well nourished patient who is awake, alert, snw and in no acute distress. Head/Face: Normocephalic, atraumatic. Eyes: Pupils equal round and reactive to light, extra-ocular motions intact. Lids and lashes normal. Conjunctiva and sclera are non-icteric and not injected. Cornea within normal limits. Periorbital areas with no swelling, redness, or edema. ENT: Nares patent. No nasal discharge, no septal abnormalities noted. Tympanic membranes are normal and external auditory canals are clear. Oropharynx with no redness, swelling, or masses, exudates, or evidence of obstruction, uvula midline. Mucous membranes moist. Neck: Trachea midline, no thyromegaly or masses palpated, and no cervical lymphadenopathy. Supple, full range of motion without nuchal rigidity, or vertebral point tenderness. No Meningismus. Chest/axilla: Normal chest wall appearance and motion. Nontender with no deformity. No lesions are appreciated. Cardiovascular: Regular rate and rhythm with a normal S1 and S2. No gallops, murmurs, or rubs. Normal PMI, no JVD. No pulse deficits. Respiratory: Lungs have equal breath sounds bilaterally, clear to auscultation and percussion. No rales, rhonchi or wheezes noted. No increased work of breathing, no retractions or nasal flaring. Abdomen/GI: Soft, non-tender, with normal bowel sounds. No distension or tympany. No guarding or rebound. No evidence of tenderness throughout. Back: No spinal tenderness. No costovertebral tenderness. Full range of motion. Skin: Warm, dry with normal turgor. Normal color with no rashes, no lesions, and no evidence of cellulitis. MS/ Extremity: Pulses equal, no cyanosis. Neurovascular intact. Full, normal range of motion. Neuro: Awake and alert, GCS 15, oriented to person, place, time, and situation. Cranial nerves II-XII grossly intact. Motor strength 5/5 in all extremities. Sensory grossly intact. Cerebellar exam normal. Normal gait. Psych: Awake, alert, with orientation to person, place and time. Behavior, mood, and affect are within normal limits. Vital Signs: 11:04 BP 141 / 76; Pulse 92; Resp 17; Temp 97.9(O); Pulse Ox 98% on R/A; Weight 95.71 kg (R); tw2 Pain 5/10; 12:00 BP 137 / 73; Pulse 79; Resp 17 S; Pulse Ox 97% on R/A; ca1 13:00 BP 138 / 82; Pulse 82; Resp 17 S; Pulse Ox 100% on R/A; ca1 14:03 BP 139 / 83; Pulse 76; Resp 17 S; Pulse Ox 97% on R/A; ca1 MDM: 11:51 Patient medically screened. snw 12:30 HEART Score: History: Highly Suspicious (2), ECG: Non specific repolarization snw disturbance / LBTB / PM (1), Age: > 45 and < 65 years (1), Risk Factors: 1 or 2 risk factors (1), [Hypertension] Troponin: < or = 1 x Normal Limit (0), Total Score = 5. The patient was given aspirin in the Emergency Department. Data reviewed: vital signs, nurses notes. Data interpreted: Pulse oximetry: on room air is 98 %. Interpretation: normal. 12:51 Counseling: I had a detailed discussion with the patient and/or guardian regarding: the snw historical points, exam findings, and any diagnostic results supporting the discharge/admit diagnosis, the presence of at least one elevated blood pressure reading (>120/80) during this emergency department visit, lab results, radiology results, the need for further work-up and treatment in the hospital. Physician consultation: Simon Preciado MD was called at 12:51, was contacted at 12:51, regarding admission, to the telemetry unit. 02/03 11: Order name: Basic Metabolic Panel; Complete Time: 12:06 ca1 02/03 11:15 Order name: CBC with Diff; Complete Time: 12: ca1 02/03 11:15 Order name: LFT's; Complete Time: 12:06 ca1 02/03 11:15 Order name: Magnesium; Complete Time: 12: ca1 02/03 11:15 Order name: NT PRO-BNP; Complete Time: 12:06 ca1 02/03 11:15 Order name: PT-INR; Complete Time: 11:49 ca1 02/03 11:15 Order name: Troponin (emerg Dept Use Only); Complete Time: 12:06 ca1 02/03 11:15 Order name: XRAY Chest (1 view); Complete Time: 12:06 ca1 02/03 11:15 Order name: EKG; Complete Time: 11:16 ca1 02/03 11:15 Order name: Cardiac monitoring; Complete Time: 11:19 ca1 02/03 12:07 Order name: Echo w/ Doppler snw 02/03 12:07 Order name: Carotid Artery Bilateral US snw 02/03 12:07 Order name: [place] Screen Profile; Complete Time: 13:21 snw 02/03 11:15 Order name: EKG - Nurse/Tech; Complete Time: 11:19 ca1 02/03 11:15 Order name: IV Saline Lock; Complete Time: 11:24 ca1 02/03 11:15 Order name: Labs collected and sent; Complete Time: 11:24 ca1 02/03 11:15 Order name: O2 Per Protocol; Complete Time: 11:19 ca1 02/03 11:15 Order name: O2 Sat Monitoring; Complete Time: 11:19 ca1 Administered Medications: 12:12 Drug: Aspirin Chewable Tablet 324 mg Route: PO; ca1 13:48 Follow up: Response: No adverse reaction ca1 Disposition: 02/03/19 12:51 Hospitalization ordered by Simon Preciado for Observation. Preliminary diagnosis is Chest pain, unspecified. - Bed requested for Telemetry/MedSurg (observation). - Status is Observation. ca1 - Condition is Stable. - Problem is new. - Symptoms are unchanged. UTI on Admission? No Addendum: 02/07/2019 06:28 Co-signature as Attending Physician, Karson Brunson MD I agree with the assessment and k dr plan of care. Signatures: Dispatcher [employer] EDFL Karson Brunson MD MD [facility] Yuli Lemus, LINE WELDER-C LINE WELDER-Miriam Shanks RN RN ss Zari Mejia, OSWALDO RN tw2 Ligia Li RN RN ca1 Corrections: (The following items were deleted from the chart) 02/03 13:35 12:51 Hospitalization Ordered by Simon Preciado MD for Observation. Preliminary diagnosis ss is Chest pain, unspecified. Bed requested for Telemetry/MedSurg (observation). Status is Observation. Condition is Stable. Problem is new. Symptoms are unchanged. UTI on Admission? No. snw 14:08 13:35 02/03/2019 12:51 Hospitalization Ordered by Simon Preicado MD for Observation. ca1 Preliminary diagnosis is Chest pain, unspecified. Bed requested for Telemetry/MedSurg (observation). Status is Observation. Condition is Stable. Problem is new. Symptoms are unchanged. UTI on Admission? No. ss 14:20 14:08 02/03/2019 12:51 Hospitalization Ordered by Simon Preciado MD for Observation. ca1 Preliminary diagnosis is Chest pain, unspecified. Bed requested for Telemetry/MedSurg (observation). Status is Observation. Condition is Stable. Problem is new. Symptoms are unchanged. UTI on Admission? No. ca1
[2019-02-03] MEDS ORDERED: ACETAMINOPHEN 500 MG TAB PO PRN (14:05)
[2019-02-03] MEDS ORDERED: NITROGLYCERIN 0.4 MG/TAB SL PRN (14:05)
[2019-02-03] MEDS ORDERED: MORPHINE 2 MG/ML SYR IV PRN (14:05)
[2019-02-03 14:37] VITALS: BMI 32.1
--- NOTE | 2019-02-03 14:41 | RAD REPORT ---
EXAM DESCRIPTION: US - CP - 02/03/2019 2:14 pm CLINICAL HISTORY: chest pain Headache, drowsiness, dizziness COMPARISON: No comparisons TECHNIQUE: Real-time sonographic evaluation of both carotid systems was performed. Doppler interroga tion was performed with waveform tracing bilaterally. FINDINGS: Normal high resistance waveforms are noted in both external carotid arteries. The common c arotid arteries and internal carotid arteries show normal low resistance waveforms. Mild hard plaque is seen in the right carotid bulb. Peak systolic and end diastolic velocity values a nd the ICA/CCA ratios are in the non-hemodynamically significant range. Antegrade flow seen in both vertebral arteries. IMPRESSION: Mild hard plaque is seen right carotid bulb. No evidence of a hemodynamically significant stenosis.
--- NOTE | 2019-02-03 15:09 | ECHO ---
HEIGHT: 5 ft 8 in WEIGHT: 211 lb 0 oz DATE OF STUDY: 02/03/[address]: Yuli Lemus GENERAL CLAIMS AGENT-BC 2-DIMENSIONAL: YES M.MODE: YES DOPPLER: YES COLOR FLOW: YES TDS: NO PORTABLE: NO DEFINITY: NO BUBBLE STUDY: NO DIAGNOSIS: CHEST PAIN CARDIAC HISTORY: CATHERIZATION: NO SURGERY: NO PROSTHETIC VALVE: NO PACEMAKER: NO MEASUREMENTS (cm) DIASTOLIC (NORMALS) SYSTOLIC (NORMALS) IVSd (0.6-1.2) LA Diam (1.9-4.0) LVEF 60-69% LVIDd (3.5-5.7) LVIDs (2.0-3.5) %FS % LVPWd (0.6-1.2) Ao Diam (2.0-3.7) 2 DIMENSIONAL ASSESSMENT: RIGHT ATRIUM: NORMAL LEFT ATRIUM: NORMAL RIGHT VENTRICLE: NORMAL LEFT VENTRICLE: NORMAL TRICUSPID VALVE: NORMAL MITRAL VALVE: NORMAL PULMONIC VALVE: NORMAL AORTIC VALVE: NORMAL PERICARDIAL EFFUSION: NONE AORTIC ROOT: NORMAL LEFT VENTRICULAR WALL MOTION: NORMAL DOPPLER/COLOR FLOW: PHYSIOLOGICAL TRICUSPID REGURGITATION. NORMAL RIGHT VENTRICULAR SYSTOLIC PRESSURE. COMMENTS: NORMAL 2D ECHOCARDIOGRAM WITH DOPPLER. TECHNOLOGIST: Sharon KRUSE
--- NOTE | 2019-02-03 16:51 | EKG ---
Test Date: 2019-02-03 Test Time: 11:04:02 Factory Laborer: LAILA MEASUREMENT RESULTS: Intervals: Rate: 89 MD: 158 QRSD: 96 QT: 356 QTc: 433 [place]: P: 67 MD: 158 QRS: 31 T: 27 INTERPRETIVE STATEMENTS: Normal sinus rhythm Cannot rule out Anteroseptal infarct, age undetermined Abnormal ECG No previous ECG available for comparison Electronically Signed On 02-03-19 16:49:55 CHIEF AIRPORT GUIDE by Ty Miller
[2019-02-03] MEDS ORDERED: ENOXAPARIN 40 MG/0.4 ML SQ SCH (17:00)
--- NOTE | 2019-02-03 20:35 | CON ---
Identification: A 63-year-old man. History Of Present Illness: Mr. Sims was well until this morning when he was shaving and he felt his heart start to race. He took his blood pressure and the blood pressure machine indicated his hea rt rate was in the 120 range. This continued. He called an ambulance, was brought to the hospital. We do not have any telemetry strips from the ambulance or EKG strips. His initial vital signs in [facility] were his rhythm was regular and within normal range. The patient takes blood pressure med icines. Three years ago, he had a similar episode and underwent a stress test, echocardiogram, and o ther testing by rigging engineer at [facility], everything turned out fine. He has never been diagnosed with myocardial infarction, stroke, any other form of vascular disease, atrial fib, or other arrhythm ia. We do not seem to have his list of outpatient medications but he reports taking a blood pressure medicine. Allergies: HE IS ALLERGIC TO X-RAY CONTRAST DYE. Medications: He does take testosterone injection weekly. Social History: He uses no tobacco, no alcohol, no illegal drugs. Physical Examination: Measurements: He is 5 feet 8 inches, 211 pounds. General: Alert, oriented, pleasant, cooperative, not in distress. Lungs: Clear. Heart: Within normal limits. Abdomen: Soft. Extremities: Normal. Distal pulses are normal. Neurological: Normal. Data: Carotid Doppler and x-ray are normal. An echocardiogram was in progress . There is no wall motion abnormality. His EKG shows a questionable septal NH and old EKG for comparison. He is in sinus rhythm. Most recent heart rate 67, blood pressure 151/90, O2 saturation 98% on room air. Impression And Plan: The patient probably had transient atrial fibrillation . His troponi ns were normal. He is likely to be discharged tomorrow and wear an event monitor or perhaps go back to the doctor at [facility] that will be done today and we will see . So far, i t seems to be an arrhythmia diagnosis. YAMINI/LEVI Voice ID: [id number] Report ID: [id number]
[2019-02-03] MEDS ORDERED: ATORVASTATIN 40 MG TAB PO SCH (21:00)
[2019-02-03] MEDS: METOPROLOL TAR 25 MG TAB PO SCH (21:49)
--- NOTE | 2019-02-04 01:54 | HP ---
Date of Admission: 02/03/2019 Primary Care Physician: Out of town. Consultants: Dr. Miller with Cardiology. Chief complaint: Chest pain, palpitations History Of Present Illness: Patient is a 63-year-old male with past medical history of hypertension, osteoarthritis, obstructive sleep apnea, migraine headaches, who is also on testosterone, comes in with sudden onset of palpitations, shortness of breath, and dizziness associated with some chest pain that was radiating to his back and his jaw. Patient's gives him an aspirin, it did not improve his symptoms. His symptoms are constant, moderate, progressively worsening. He checked his heart rate, it was in the 120s to 130s. 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 However, due to his recurrence of pain, the patient came into the ER for further evaluation. His workup revealed negative cardiac enzyme. His creatinine was elevated at 1.43. No baseline available. WBC count was elevated at 14,000. His mono screen was positive. Patient had been reporting generalized fatigue and weakness recently. Patient was then referred for admission. When seen in the ER, he was awake, alert, and oriented x3, in some mild distress. Past Medical History: Hypertension, obstructive sleep apnea, no longer using CPAP, osteoarthritis, migraine headaches, currently on testosterone supplements and cauda equina syndrome with left leg weakness as a complication from surgery. Surgical History: Back surgery, shoulder surgery. Allergies: IODINE. Medications: List reviewed. Social History: Patient denies any tobacco use, alcohol use, or illicit drug use. Patient is , has a daughter. 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 Independent in his activities of daily living. Family History: Has strong heart disease in the family. Brother of [place] at the age of 60. Grandfather of [place] at the age of 59. Father of [place] at the age of 62. Grandmother has heart valve disease. Review of Systems: Ten-point system reviewed, negative except as per HPI. Physical Examination: Vital Signs: Temperature 97.9, heart rate 92, blood pressure 141/76, respirations 17, O2 98% on room air. General: Awake, alert, and oriented x3, obese male. HEENT: Normocephalic, atraumatic. PERRLA. EOMI. Moist mucous membranes. Oropharynx is clear. Conjunctivae are anicteric. Neck: Supple. No JVD. Trachea midline. CV: S1, S2. Regular rate and rhythm. Peripheral pulses present. Respiratory: Moving air well bilaterally. No wheezing or stridor. No use of accessory muscles. Gastrointestinal: Abdomen is soft, nontender, nondistended. Positive bowel sounds. No guarding or rigidity. Extremities: No clubbing, cyanosis, or edema. Neuro: Cranial nerves 2 through 12 intact grossly. No focal neurological deficits. Speech is normal. Skin: No rashes. Normal skin turgor. Psych: Mood is okay. Affect is full. Insight and judgment are good. Laboratory Data: Sodium 139, potassium 3.7, chloride 104, CO2 of 26, BUN 22, creatinine 1.43, glucose 116, calcium 9.1, magnesium 2.4. Troponin 0.02. BNP 182. INR 1.03. WBC 14.1, H and H 16.6 and 48.3, platelets 275, neutrophils 81% , monocytes 7.5%, lymphocytes 10%. [place] screen is positive. Imaging Studies: Chest x-ray shows no acute abnormalities. Assessment: A 63-year-old male with, 1. Chest pain, rule out acute coronary syndrome. Patient has multiple risk factors including obesity, hypertension, age, strong family history with multiple first-degree relatives dying in their 60s. We will obtain serial cardiac enzymes and EKG. Consult Cardiology. Nitroglycerin and morphine p.r.n. May benefit from stress test. 2. Palpitations, likely related to atrial fibrillation. Rate was in the 120s to 130s. We will place him on cardiac telemetry and monitor. We will check magnesium, TSH. Patient does have history of sleep apnea. He was on CPAP machine, however, stated that after losing some weight, he no longer snores and therefore is not using his CPAP machine anymore. Recommended to continue using CPAP at home as it may be the cause of his atrial fibrillation. 3. Acute versus acute on chronic kidney injury. Creatinine is 1.43. No baseline available. Patient does take benazepril at home. We will continue to monitor. 4. Essential hypertension. Resume home medications as appropriate. 5. Obstructive sleep apnea. Recommended to continue with CPAP. 6. Migraine headaches. No recent headaches. Patient states since starting testosterone his headaches have disappeared. 7. Osteoarthritis in the shoulders. 8. History of cauda equina syndrome with weakness in the left leg. 9. Obesity, BMI of 32. Plan: Admit patient to Med-Surg, [facility] as observation. We will obtain echocardiogram, carotid artery ultrasound. Follow up with Cardiology recommendations. GEETHA Voice ID: [id number] MTDD
[2019-02-04 05:00] LABS: Absolute Lymphocytes (CBC) 1.8 K/uL (0.7-4.9); Basophils % 0.4 % (0-1.3); Hematocrit 44.9 % (39.6-49.0); Lymphocytes % 20.2 % (15.3-44.8); MPV 8.9 fL (7.6-11.3); RBC Red Blood Cell Count 5.97 M/uL (4.33-5.43)
[2019-02-04 05:16] LABS: Potassium 3.5 mmol/L (3.5-5.1); Thyroid Stimulating Hormone 0.646 uIU/mL (0.360-3.740)
[2019-02-04 05:20] LABS: Urine Appearance CLEAR; Urine Color YELLOW
[2019-02-04 05:21] LABS: Urine Specific Gravity >=1.030 (1.005-1.030)
[2019-02-04 05:22] LABS: Urine Bilirubin NEGATIVE (NEG); Urine Blood NEGATIVE (NEG); Urine Glucose TRACE (NEG); Urine Microscopic Reflex NO UMIC; Urine Protein NEGATIVE (NEG)
[2019-02-04] MEDS ORDERED: ASPIRIN EC 81 MG TAB PO SCH (09:00)
[2019-02-04] MEDS ORDERED: TRAMADOL HCL 50 MG TAB PO SCH (09:00)
[2019-02-04] MEDS ORDERED: hydroCHLOROthiazide 25 MG TAB PO SCH (09:00)
[2019-02-04] MEDS ORDERED: lisinopriL 10 MG TAB PO SCH (09:00)
[2019-02-04] MEDS ORDERED: BENAZEPRIL 20 MG TAB PO SCH (09:00)
[2019-02-04] MEDS: METOPROLOL TAR 25 MG TAB PO SCH (09:17)
[2019-02-04 09:18] VITALS: BP 156/80
[2019-02-04 09:35] VITALS: O2SAT 96
[2019-02-04 09:49] VITALS: TEMP 97.2
--- NOTE | 2019-02-04 14:29 | PN ---
Mr. Sims has normal enzymes, normal EKG, few PVCs, and PACs on telemetry, but no atrial fibrillati on and my suspicion is that his symptoms are due to atrial fibrillation. I think at this point, he c an be discharged home, but he should do a nuclear stress test and a month long event monitor and see me as an outpatient. If he proves to have atrial fibrillation, we will initiate direct oral anticoag ulant therapy, antiarrhythmic therapy. YAMINI/LEVI Voice ID: [id number] Report ID: [id number]
--- NOTE | 2019-02-05 04:00 | DS ---
Date of Discharge: 02/04/2019 Consultants: Dr. Miller with Cardiology. Procedures: None. Discharge Diagnoses: 1.Chest pain, acute coronary syndrome ruled out. 2.Palpitations likely paroxysmal atrial fibrillation. 3.Acute kidney injury, resolved. Creatinine back to baseline. 4.Essential hypertension, stable. 5.Obstructive sleep apnea, recommended to continue with CPAP. 6.Migraine headaches. 7.Osteoarthritis. 8.History of cauda equina syndrome with weakness in the left leg. 9.Obesity, BMI 32. Hospital Course: The patient is a 63-year-old male with past medical history of hypertension, osteoa rthritis, sleep apnea, migraine headaches. Also takes testosterone supplements, who is no longer usi ng his CPAP due to recent weight loss, comes in with palpitations, chest pain. Patient was admitted to the hospital for further workup. Cardiology was consulted. The patient's cardiac enzymes were ne gative. ACS was ruled out. Lipid panel was within normal limits. HDL was slightly low at 35. He d id have an elevated white blood cell count, however normalized, likely due to his mononucleosis. He was found positive for mono screen. Symptomatic treatment was initiated. The patient was also place d on chest pain guidelines. Echocardiogram showed normal EF 60% to 69%. Patient was back into sinus rhythm while in the hospital. His carotid artery ultrasound was done due to dizziness, showed some mild heart plaque in the right carotid bulb, but no evidence of hemodynamically significant stenosis. Patient's chest x-ray was clear and Dr. Miller recommended outpatient Holter monitor study and the patient's symptoms had resolved. He stayed in sinus rhythm. He was then cleared for discharge and s ent home in a stable condition. Activity: As tolerated. Medications: As per medication reconciliation list. Followup: Follow up with primary care physician in 2-3 days. Follow up with night assistant, Dr. Denzel castillo in 2 weeks. Return to ER for worsening condition. Diet: Heart healthy. Physical Examination: General: Awake, alert, and oriented x3, not in any acute distress, obese male. CV: S1, S2. Regular rate and rhythm. Respiratory: Moving air well bilaterally. Abdomen: Abdomen is soft, nontender, nondistended. Positive bowel sounds. Extremities: No clubbing, cyanosis, or edema. Neuro: Left side weakness. SA/MODL Voice ID: [id number] Report ID: [id number]
== END 2019-02-04 12:25 | disposition home or self-care (01) ==
LOC: ER 10:50 → ERHOLD 13:19 → 4TH 14:11
PROVIDERS: ADMIT Family Medicine; ATTEND Family Medicine
DX: I48.0 Paroxysmal atrial fibrillation (principal); I10 Essential (primary) hypertension; M19.012 Primary osteoarthritis, left shoulder; M19.011 Primary osteoarthritis, right shoulder; E66.9 Obesity, unspecified; Z68.32 Body mass index [BMI] 32.0-32.9, adult; N17.9 Acute kidney failure, unspecified; G43.909 Migraine, unspecified, not intractable, without status migrainosus
CPT/HCPCS: 93005; 93306; 85025 ×2; 80048 ×2; 36415; 83735; 86308; 85610; 80061; 80076; 84443; 81003; 84484 ×3; 83880; 71045; 93880; 94760 ×2; 99285; J1650; G0378 ×3

== ENCOUNTER 2022-02-02 07:00 | Day surgery (SDC) | payer OTHER ==
--- NOTE | 2022-01-27 08:36 | RAD REPORT ---
EXAM DESCRIPTION: RAD - Chest Pa And Lat (2 Views) - 01/27/2022 8:30 am CLINICAL HISTORY: Pre op pending colonoscopy COMPARISON: Portable 02/03/2019 TECHNIQUE: Frontal and lateral views of the chest were obtained. FINDINGS: The lungs are clear. Interstitial pattern matches comparison. Heart size is normal and ce ntral vasculature is within normal limits. No pleural effusion or pneumothorax seen. No acute bony finding noted. No aortic abnormality. IMPRESSION: No acute cardiopulmonary process. No significant change from comparison study.
[2022-01-27 10:13] LABS: Absolute Lymphocytes (CBC) 1.5 K/uL (0.7-4.9); Hematocrit 47.8 % (39.6-49.0); Lymphocytes % 24.1 % (15.3-44.8); MCV 69.3 fL (80-100); MPV 9.8 fL (7.6-11.3)
[2022-01-27 10:31] LABS: Potassium 4.5 mmol/L (3.5-5.1)
[2022-01-27 11:47] LABS: Anisocytosis 1+; Blood Morphology Comment NOTED (NOT SEEN); Platelet Estimate ADEQ; White Blood Cell Scan OK (OK)
--- NOTE | 2022-01-27 13:55 | EKG ---
Test Date: 2022-01-27 Test Time: 08:13:47 Supervisor Steno Pool: AMANDA MEASUREMENT RESULTS: Intervals: Rate: 57 NC: 184 QRSD: 100 QT: 416 QTc: 404 [place]: P: 65 NC: 184 QRS: 49 T: 56 INTERPRETIVE STATEMENTS: Sinus bradycardia Otherwise normal ECG Compared to ECG 02/03/2019 11:04:02 Sinus rhythm no longer present Myocardial infarct finding no longer present Electronically Signed On 01-27-22 13:54:00 ASSISTANT DIRECTOR OF NURSING by Damion Greene
[2022-02-02] MEDS ORDERED: Ringers Lactate 1,000 ML IV ONE (07:20)
[2022-02-02] MEDS ORDERED: LIDOCAINE 1% MPF 5 ML VIAL ONE (07:49)
[2022-02-02] MEDS ORDERED: propofoL 200 MG/20 ML VIAL IV ONE (07:49)
--- NOTE | 2022-02-02 08:30 | ENDO RPT ---
[address], [address] COLONOSCOPY PROCEDURE REPORT EXAM DATE: 02/02/2022 PATIENT NAME: Thor Sims MR #: [id number] BIRTHDATE: 1955 ATTENDING: Uriel Jackson M.D. STATUS: outpatient AQUATICS SPECIALIST: Cynthia Sharpe RN and Flaquita Yulissata Landis INDICATIONS: The patient is a 66 yr old Male here for a colonoscopy due to colon cancer screening PROCEDURE PERFORMED: Colonoscopy MEDICATIONS: Per Anesthesia. ESTIMATED BLOOD LOSS: None CONSENT: The patient understands the risks and benefits of the procedure and understands that these risks include, but are not limited to: sedation, allergic reaction, infection, perforation and/or bleeding. Alternative means of evaluation and treatment include, among others: physical exam, x-rays, and/or surgical intervention. The patient elects to proceed with this endoscopic procedure. DESCRIPTION OF PROCEDURE: During intra-op preparation period all mechanical medical equipment was checked for proper function. Hand hygiene and appropriate measures for infection prevention was taken. Procedure, possible complications, alternatives including, but not limited to possibility of bleeding, perforation, tear, infection, sepsis, need for surgery, need for blood transfusion, were explained to the patient. After the risks, benefits and alternatives of the procedure were thoroughly explained, Informed consent was verified, confirmed and timeout was successfully executed by the treatment team. The patient was placed in the left lateral position. A digital rectal exam was performed and revealed an enlarged prostate. After appropriate level of anesthesia, the scope was passed. The EC-[id number] ([id number]) endoscope was introduced through the anus and advanced to the cecum, which was identified by transillumination from the light source. The quality of the prep was good. The instrument was then slowly withdrawn as the colon was fully examined. Scope withdrawal time was 10 minutes. COLON FINDINGS: Mild diverticulosis was noted in the descending colon and sigmoid colon. Small internal hemorrhoids were found. Retroflexed views revealed no abnormalities. The scope was then completely withdrawn from the patient and the procedure terminated. ADVERSE EVENTS: There were no complications. IMPRESSIONS: 1. Mild diverticulosis was noted in the descending colon and sigmoid colon 2. Small internal hemorrhoids RECOMMENDATIONS: 1. fiber rich diet 2. follow-up: office 1 week(s) 3. increase dietary water RECALL: Return in 10 year(s) for Colonoscopy. Uriel Jackson M.D. eSigned: Uriel Jackson M.D. 02/02/2022 8:30 AM cc: Jersey Briones MD CPT CODES: ICD9 CODES: PATIENT NAME: Thor Sims MR#: [id number]
[2022-02-02] MEDS ORDERED: SIMETHICONE 40 MG/ 0.6 ML ONE (09:31)
[2022-02-02 11:47] VITALS: TEMP 97.2
[2022-02-02 12:02] VITALS: BP 163/86; O2SAT 98
[2022-02-02] MEDS ORDERED: SIMETHICONE 40 MG/ 0.6 ML PO ONE (12:18)
== END 2022-02-02 10:33 | disposition home or self-care (01) ==
LOC: OR 07:00
PROVIDERS: ATTEND Surgery
PROC: 0DJD8ZZ Inspection of Lower Intestinal Tract, Via Natural or Artificial Opening Endoscopic (ICD-10-PCS; principal; 2022-02-02 08:30)
DX: Z12.11 Encounter for screening for malignant neoplasm of colon (principal); K57.30 Diverticulosis of large intestine without perforation or abscess without bleeding; K64.8 Other hemorrhoids; I10 Essential (primary) hypertension
CPT/HCPCS: 93005; 85025; 80048; 36415; 71046; 45378; J2704; J2001; J7120

== ENCOUNTER 2022-07-29 17:12 | Emergency (ER) | payer OTHER ==
--- OUTSIDE RECORDS SUMMARY | 2022-07-29 17:15 | XMS REPORT | Continuity of Care Document ---
:1955 Author Organization [facility] t Address [address] [facility] [address] [place] [address] Care Team Providers Name Role Phone Tommy Oleary MD Primary Care Physician [place] Briones Attending Clinician Unavailable AHMET MATHEWS Attending Clinician Unavailable Ahmet Juan Attending Clinician Ale Attending Clinician Unavailable RAMESH GAVIRIA Attending Clinician Unavailable [place] Shabazz DO Attending Clinician Ramesh Gvairia MD Attending Clinician Ahmet Juan Attending Clinician DEMARCO OSWALD Attending Clinician Unavailable Ale Admitting Clinician Unavailable Payers Payer Name Policy Type Policy Number Effective Date Expiration Date S ource MEDICARE PART A \T\ [id number] - MEDICARE [facility] MEDICARE [id number] SUPPLEMENT PLAN [facility] MEDICARE B-[place]: [id number] 1999 [employer] 00:00:00 MEDICARE A-[place]: [id number] 1999 [employer] - 00:00:00 [facility] Problems Condition Condition Condition Status Onset Resolution Last Treating Co mments Source Name Details Category Date Date Treatment Clinician Date Serum Serum Problem Active [place] creatinine Creatinine 5-06 da raised Raised 00:00: Medical 00 Group Relative Relative Problem Active 2018-03 [place] polycythem Polycythem 2-23 da ia ia 00:00: Medical 00 Group Seasonal Seasonal Problem Active 2018-03 [place] allergy Allergy 1-14 da 00:00: Medical 00 Group Benign Benign Problem Active [place] essential Essential 2-26 da hypertensi Hypertensi 00:00: Me dical on on 00 Group Chronic Chronic Problem Active [place] back pain Back Pain 2-26 da greater Greater 00:00: Medical than three than Three 00 Gr oup months Months duration Duration Chronic Chronic Problem Active [place] headache Headache 2-26 da disorder Disorder 00:00: Medica l 00 Group History of History of Problem Active [facility] calculus 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 Kidney 00:00: Medi govind 00 Group Screening Screening Problem Active [facility] [place] for for 2-26 da malignant Malignant 00:00: Medi govind neoplasm Neoplasm 00 Group of colon of Colon Rotator Rotator Disease Active [facility] cuff tear cuff tear 7-16 [facility] ege 00:00: of 00 Medicin e Rotator Rotator Disease Active [facility] cuff tear cuff tear 7-16 [facility] ege 00:00: of 00 Medicin e Chest Chest Disease Active [facility] atypical atypical 00:00: Medica l [place] Hypertensi Hypertensi Disease Active [facility] DAVIDA DAVIDA Disease Active [facility] (obstructi (obstructi 3-16 Polly kes ve sleep ve sleep 00:00: Medica l apnea) apnea) 00 Center Chest pain Chest pain Disease Active [facility] 3[facility] 00:00: Medical 00 [place] Phimosis Phimosis Disease Active [facility] r 6-10 College 00:00: of 00 Medicin e Nephrolith Nephrolith Disease Active [facility] iasis iasis 8-24 College 00:00: of 00 Medicin e Hematuria Hematuria Disease Active [place] jasmine 7-30 College 00:00: of 00 Medicin e [id number] 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 [id number] Body mass Problem Com mon index Spirit [BMI] - [facility] 35.0-35.9, [facility] [id number] Essential Problem Comm on (primary) Spirit hypertensi - [facility] on [facility] Allergies, Adverse Reactions, Alerts Allergy Allergy Status Severity Reaction(s) Onset Inactive Treating Comm ents Source Name Type Date Date Clinician Iodides Propensi Active Swelling [facility] ty to 3-15 [place] adverse 00:00: of reaction 00 Medicin s to e drug Iodides Propensi Active Swelling [facility] r ty to 3-15 [place] adverse 00:00: of reaction 00 Medicin s to e drug Iodine Drug Active Swelling [facility] St And Allergy 06-03 [facility] Iodide 00:00: Medical Containi 00 Center ng Products Iodine Propensi Active [facility] ty to 7-30 [place] adverse 00:00: of reaction 00 Medicin s to e drug Iodine Allergy Active Other [place] to da [facility] Medical e Group iodine iodine Active Unknown [facility] Family History Family Member Diagnosis Comments Start Date Stop Date Source Natural brother Heart disease [facility] Maternal grandmother Heart disease C HI [facility] Social History Social Habit Start Date Stop Date Quantity Comments Source History of Common [facility] - Tobacco Use [facility] Exposure to Not sure [facility] Darion palmer SARS-CoV-2 of Medicine (event) Alcohol intake 2017-12-31 2017-12-31 Current [facility] es 00:00:00 00:00:00 non-drinker of Medical Ce nter alcohol (finding) Tobacco use and 2016-11-05 2016-11-05 Smokeless tobacco [facility] exposure 00:00:00 00:00:00 non-user of Medicine Sex [birth year] BERNADETTE Sánchezs 00:00:00 00:00:00 Medical Center Smoking Status Start Date Stop Date Source Never Smoker [facility] Medications Ordered Filled Start Stop Current Ordering Indication Dosage Frequency Signature Comments Components Source Medication Medication Date Date Medication? Clinician (SIG) Name Name sildenafil 2021-03 Yes TAKE 1 [facility] citrate 0-18 TABLET BY College (JASEN) 00:00: MOUTH of 100 MG 00 DAILY 30 Medicin tablet MINUTES e PRIOR TO SEXUAL ACTIVITY TRAMADOL 2020-03 Yes [facility] HCL 1- [place] 08:08: of 00 Medicin e TRAMADOL 2020-03 Yes [facility] HCL - [place] 08:08: of 00 Medicin e TRAMADOL Yes [facility] HCL 08-12 [place] 09:47: of 37 Medicin e metoprolol 2020- No Toprol XL [facility] (TOPROL XL) 08-12 05-24 50 mg Colleg e 50 MG XL 09:47: 00:00 tablet,ext of tablet 35 :00 ended Medicin release e Take 1 tablet every day by oral route. TAKE DAILY FOR BLOOD PRESSURE benazepril Yes 1{tbl} Take 1 [place] jasmine (LOTENSIN) 5-06 Tablet by [facility]hya ege 20 MG 00:00: mouth of tablet 00 daily. Medicin e hydrochloro Yes 1{tbl} Take 1 [facility] thiazide 5-06 Tablet by Colleg e (HYDRODIURI 00:00: mouth of L) 25 MG 00 daily. Medicin tablet e benazepril Yes 1{tbl} Take 1 [place] jasmine (LOTENSIN) 5-06 Tablet by [facility]hya ege 20 MG 00:00: mouth of tablet 00 daily. Medicin e hydrochloro Yes 1{tbl} Take 1 [facility] thiazide 5-06 Tablet by Colleg e (HYDRODIURI 00:00: mouth of L) 25 MG 00 daily. Medicin tablet e benazepril Yes 1{tbl} Take 1 [place] jasmine (LOTENSIN) 5-06 Tablet by [facility]hya ege 20 MG 00:00: mouth of tablet 00 daily. Medicin e hydrochloro Yes 1{tbl} Take 1 [facility] thiazide 5-06 Tablet by Colleg e (HYDRODIURI 00:00: mouth of L) 25 MG 00 daily. Medicin tablet e TRAMADOL Yes [facility] HCL 5-03 College 13:10: of 52 Medicin e metoprolol Yes Toprol XL [facility] (TOPROL XL) 5-03 50 mg College 50 MG XL 13:10: tablet,ext of tablet 52 ended Medicin release e Take 1 tablet every day by oral route. TAKE DAILY FOR BLOOD PRESSURE sildenafil Yes Take 1 tab [facility] citrate 5-03 PO daily College (VIAGRA) 00:00: PRN 30 min of 100 MG 00 prior to Medicin tablet sexual e activity sildenafil Yes Take 1 tab [facility] citrate 5-03 PO daily College (VIAGRA) 00:00: PRN 30 min of 100 MG 00 prior to Medicin tablet sexual e activity metoprolol Yes Toprol XL [facility] (TOPROL XL) 5-28 50 mg College 50 MG XL 13:59: tablet,ext of tablet 34 ended Medicin release e Take 1 tablet every day by oral route. TAKE DAILY FOR BLOOD PRESSURE anastrozole Yes 1mg Take 1 Tab [facility] (ARIMIDEX) 5-28 by mouth Colle ge 1 MG tablet 00:00: every 7 of 00 days. Medicin e anastrozole 2019-0 Yes 1mg Take 1 Tab [facility] (ARIMIDEX) 5-28 by mouth Colle ge 1 MG tablet 00:00: every 7 00 days. Medicin e anastrozole 2019-0 Yes 1mg Take 1 Tab [facility] (ARIMIDEX) 5-28 by mouth Colle ge 1 MG tablet 00:00: every 7 of 00 days. Medicin e anastrozole 2019-0 2022- No 1mg Take 1 Tab [facility] (ARIMIDEX) 5-28 - by mouth [facility]hya ege 1 MG tablet 00:00: 00:00 every 7 of 00 :00 days. Medicin e metoprolol Yes Toprol XL [facility] (TOPROL XL) 9-24 50 mg College 50 MG XL 15:05: tablet,ext of tablet 26 ended Medicin release e Take 1 tablet every day by oral route. TAKE DAILY FOR BLOOD PRESSURE TRAMADOL Yes [facility] HCL 12-13 [place] 15:04: of 38 Medicin e TRAMADOL Yes [facility] HCL 12-13 [place] 15:04: of 38 Medicin e testosteron Yes Inject 0.6 [facility] e enanthate 7-03 ml SQ [place] (DELATESTRY 00:00: every 7 of L) 200 00 days Medicin MG/ML e injection testosteron Yes Inject 0.6 [facility] e enanthate 7-03 ml SQ [place] (DELATESTRY 00:00: every 7 of L) 200 00 days Medicin MG/ML e injection tramadol 2017-03 Yes Take 1-2 [facility] (ULTRAM) 50 0-31 tablets by Co llege MG tablet 00:00: mouth of 00 every 4-6 Medicin hours as e needed tramadol 2017-03 Yes Take 1-2 [facility] (ULTRAM) 50 0-31 tablets by Co llege MG tablet 00:00: mouth of 00 every 4-6 Medicin hours as e needed tramadol 2017-03 Yes Take 1-2 [facility] (ULTRAM) 50 0-31 tablets by Co llege MG tablet 00:00: mouth of 00 every 4-6 Medicin hours as e needed tramadol 2017-03 Yes Take 1-2 [facility] (ULTRAM) 50 0-31 tablets by Co llege MG tablet 00:00: mouth of 00 every 4-6 Medicin hours as e needed tramadol 2017-03 Yes Take 1-2 [facility] (ULTRAM) 50 0-31 tablets by Co llege MG tablet 00:00: mouth of 00 every 4-6 Medicin hours as e needed tramadol 2017-03 Yes Take 1-2 [facility] (ULTRAM) 50 0-31 tablets by Co llege MG tablet 00:00: mouth of 00 every 4-6 Medicin hours as e needed cyclobenzap 2017-03 2019- No 10mg Take 1 Tab [facility] rine 0-12-13 by mouth 3 College (FLEXERIL) 00:00: 00:00 times of 10 MG 00 :00 daily as Medicin tablet needed for e Muscle spasms. Diclofenac 2017-03- No 3g Place 3 g [facility] Sodium 017 09-24 onto the College (VOLTAREN) 00:00: 00:00 skin 3 of 1 % GEL 00 :00 times Medicin daily. e benazepril- 2017-03 Yes 1{tbl} QD Take [address] hydrochlort 0-11 tablet by Lucie es hiazide 17:27: mouth Medical (LOTENSIN 25 daily. Center HCT) 10-12.5 mg per tablet ondansetron 2017-03 2019- No 4mg Take 1 Tab [facility] (ZOFRAN) 4 0-11 09-24 by mouth Sandhya ege MG tablet 00:00: 00:00 every 6 of 00 :00 hours as Medicin needed for e Nausea. testosteron Yes Q7D once a [facility] enanthate 7-16 week . [facility] (DELATESTRY 00:00: Medica l L) 200 00 Center mg/mL injection sildenafil 2014-03 Yes 100mg Take 1 Tab [facility] citrate 0-20 by mouth [place] (VIAA) 00:00: as needed. of 100 MG 00 Medicin tablet e sildenafil 2014-03 Yes 100mg Take 1 Tab [facility] citrate 0-20 by mouth [place] (VIAGRA) 00:00: as needed. of 100 MG 00 Medicin tablet e sildenafil 2014-03 Yes 100mg Take 1 Tab [facility] citrate 0-20 by mouth [place] (VIAGRA) 00:00: as needed. of 100 MG 00 Medicin tablet e acetaminoph acetaminoph No acetaminop [place] en 300 en 300 hen 300 da mg-codeine mg-codeine mg-codeine Medical 30 mg 30 mg 30 mg Group tablet tablet tablet anastrozole anastrozole No anastrozol [place] 1 mg tabs 1 mg tabs e 1 mg da tabs Medical Group anastrozole anastrozole No anastrozol [place] 1 mg tablet 1 mg tablet e 1 mg da TAKE 1 TAKE 1 tablet Medical TABLET BY TABLET BY TAKE 1 Navin up MOUTH ONCE MOUTH ONCE TABLET BY A WEEK A WEEK MOUTH ONCE A WEEK benazepril benazepril No benazepril [place] 20 mg 20 mg 20 mg da tablet TAKE tablet TAKE tablet Medical 1 TABLET BY 1 TABLET BY TAKE 1 Group MOUTH ONCE MOUTH ONCE TABLET BY DAILY DAILY MOUTH ONCE DAILY hydrochloro hydrochloro No hydrochlor [place] thiazide 25 thiazide 25 othiazide da mg tablet mg tablet 25 mg Medi govind Take 1 Take 1 tablet Group tablet by tablet by Take 1 mouth once mouth once tablet by daily daily mouth once daily Benazepril Benazepril No 1{table QD Benazepril HCl 40 MG HCl 40 MG t} HCl 40 MG Testosteron Testosteron No Testostero e e ne Benazepril Benazepril No 1{table QD Benazepril HCl 40 MG HCl 40 MG t} HCl 40 MG Testosteron Testosteron No Testostero e e ne Benazepril Benazepril No 1{table QD Benazepril HCl 40 MG HCl 40 MG t} HCl 40 MG Testosteron Testosteron No Testostero e e ne Benazepril Benazepril No 1{table QD Benazepril HCl 40 MG HCl 40 MG t} HCl 40 MG Testosteron Testosteron No Testostero e e ne Benazepril Benazepril No 1{table QD Benazepril HCl 40 MG HCl 40 MG t} HCl 40 MG Testosteron Testosteron No Testostero e e ne Testosteron Testosteron No Testostero e e ne Benazepril Benazepril No QD Benazepril HCl 40 MG HCl 40 MG HCl 40 MG Benazepril Benazepril No 1{table QD Benazepril HCl 40 MG HCl 40 MG t} HCl 40 MG Testosteron Testosteron No Testostero e e ne Benazepril Benazepril No 1{table QD Benazepril HCl 40 MG HCl 40 MG t} HCl 40 MG Testosteron Testosteron No Testostero e e ne Benazepril Benazepril No 1{table QD Benazepril HCl 40 MG HCl 40 MG t} HCl 40 MG Testosteron Testosteron No Testostero e e ne Benazepril Benazepril No 1{table QD Benazepril HCl 40 MG HCl 40 MG t} HCl 40 MG Testosteron Testosteron No Testostero e e ne Immunizations Ordered Immunization Filled Immunization Date Status Commen ts Source Name Name Tdap 2015-12-30 [facility] 00:00:00 [facility] Vital Signs Vital Name Observation Time Observation Value Comments Source height 2021-12-25 11:00:00 67 [in_i] Common S pirit [facility] weight 2021-12-25 11:00:00 221.7 [lb_av] Common [facility] temperature 2021-12-25 11:00:00 97.0 [degF] Common S [facility] bmi 2021-12-25 11:00:00 34.72 kg/m2 Common [facility] oximetry 2021-12-25 11:00:00 99 % Common [facility] respiratory rate 2021-12-25 11:00:00 18 /min Comm on [facility] blood pressure 2021-12-25 11:00:00 136 mm[Hg] Common [facility] - systolic [facility] blood pressure 2021-12-25 11:00:00 72 mm[Hg] Common [facility] - diastolic [facility] height 2021-12-25 10:50:00 67 [in_i] Common S [facility] weight 2021-12-25 10:50:00 221.7 [lb_av] [facility] temperature 2021-12-25 10:50:00 97 [degF] Common S [facility] bmi 2021-12-25 10:50:00 34.72 kg/m2 [facility] oximetry 2021-12-25 10:50:00 99 % [facility] respiratory rate 2021-12-25 10:50:00 18 /min Comm on [facility] blood pressure 2021-12-25 10:50:00 136 mm[Hg] [facility] - systolic [facility] blood pressure 2021-12-25 10:50:00 72 mm[Hg] [facility] - diastolic [facility] height 2021-10-08 15:30:00 67 [in_i] [facility] weight 2021-10-08 15:30:00 226.5 [lb_av] [facility] temperature 2021-10-08 15:30:00 98.1 [degF] Common S p[facility] bmi 2021-10-08 15:30:00 35.47 kg/m2 Common [facility] oximetry 2021-10-08 15:30:00 98 % Common S pirit [facility] respiratory rate 2021-10-08 15:30:00 17 /min Comm on [facility] blood pressure 2021-10-08 15:30:00 138 mm[Hg] [facility] - systolic [facility] blood pressure 2021-10-08 15:30:00 78 mm[Hg] Common [facility] - diastolic [facility] Systolic blood 2021-01-20 13:07:00 169 mm[Hg] [facility] pressure Medicine Diastolic blood 2021-01-20 13:07:00 93 mm[Hg] [facility] Medicine Heart rate 2021-01-20 13:07:00 82 /min [facility] Body temperature 2021-01-20 13:07:00 36.78 [facility] Systolic blood 2020-08-12 14:47:00 163 mm[Hg] [facility] Diastolic blood 2020-08-12 14:47:00 93 mm[Hg] [facility] Medicine Heart rate 2020-08-12 14:47:00 80 /min [facility] Respiratory rate 2020-08-12 14:47:00 16 /min [facility] Body height 2020-08-12 14:47:00 170.2 cm [facility] Body weight 2020-08-12 14:47:00 100.88 kg [facility] BMI 2020-08-12 14:47:00 34.83 kg/m2 [facility] BP Diastolic 2020-07-25 00:00:00 88 mm[Hg] [facility] BP Systolic 2020-07-25 00:00:00 145 mm[Hg] [facility] Body Weight 2020-07-25 00:00:00 3472 [oz_av] [facility] Systolic blood 2020-07-22 13:10:00 148 mm[Hg] [facility] pressure Medicine Diastolic blood 2020-07-22 13:10:00 88 mm[Hg] [facility] Medicine Heart rate 2020-07-22 13:10:00 85 /min [facility] C [facility] of [facility] Body height 2020-07-22 13:10:00 170.2 cm [facility] C [facility] Body weight 2020-07-22 13:10:00 98.884 kg [facility] C [facility] BMI 2020-07-22 13:10:00 34.14 kg/m2 [facility] ollege of Medicine Systolic blood 2020-07-22 13:10:00 148 mm[Hg] [facility] pressure Medicine Diastolic blood 2020-07-22 13:10:00 88 mm[Hg] [facility] Medicine Heart rate 2020-07-22 13:10:00 85 /min [facility] ol[facility] of Medicine Body height 2020-07-22 13:10:00 170.2 cm [facility] ol[facility] of Medicine Body weight 2020-07-22 13:10:00 98.884 kg [facility] C [facility] of Medicine BMI 2020-07-22 13:10:00 34.14 kg/m2 [facility] ol[facility] of Medicine Systolic blood 2019-08-17 13:58:00 162 mm[Hg] [facility] pressure Medicine Diastolic blood 2019-08-17 13:58:00 83 mm[Hg] [facility] Medicine Heart rate 2019-08-17 13:58:00 82 /min [facility] ol[facility] of Medicine Respiratory rate 2019-08-17 13:58:00 16 /min [facility] Body height 2019-08-17 13:58:00 172.7 cm [facility] C [facility] of Medicine Body weight 2019-08-17 13:58:00 97.523 kg [facility] C [facility] of Medicine BMI 2019-08-17 13:58:00 32.69 kg/m2 [facility] ol[facility] of Medicine Systolic blood 2019-08-17 13:58:00 162 mm[Hg] [facility] pressure Medicine Diastolic blood 2019-08-17 13:58:00 83 mm[Hg] [facility] pressure Medicine Heart rate 2019-08-17 13:58:00 82 /min [facility] Respiratory rate 2019-08-17 13:58:00 16 /min [facility] Body height 2019-08-17 13:58:00 172.7 cm [facility] Body weight 2019-08-17 13:58:00 97.523 kg [facility] BMI 2019-08-17 13:58:00 32.69 kg/m2 [facility] BP Diastolic 2019-03-13 00:00:00 88 mm[Hg] [facility] Height 2019-03-13 00:00:00 67 [in_i] [facility] BMI (Body Mass 2019-03-13 00:00:00 33.4 kg/m2 [facility] Medical Index) Group BP Systolic 2019-03-13 00:00:00 160 mm[Hg] [facility] Body Weight 2019-03-13 00:00:00 3408 [oz_av] [facility] BP Diastolic 2019-02-02 00:00:00 92 mm[Hg] [facility] Height 2019-02-02 00:00:00 67 [in_i] [facility] BMI (Body Mass 2019-02-02 00:00:00 33 kg/m2 [facility]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 BP Systolic 2019-02-02 00:00:00 160 mm[Hg] [facility] Body Weight 2019-02-02 00:00:00 3376 [oz_av] [facility] Systolic blood 2018-12-13 14:59:00 166 mm[Hg] [facility] of pressure Medicine Diastolic blood 2018-12-13 14:59:00 91 mm[Hg] [facility] of pressure Medicine Systolic blood 2018-12-13 14:59:00 166 mm[Hg] [facility] of pressure Medicine Diastolic blood 2018-12-13 14:59:00 91 mm[Hg] [facility] of pressure Medicine BP Diastolic 2018-12-12 00:00:00 93 mm[Hg] [facility] Height 2018-12-12 00:00:00 67 [in_i] [facility] BMI (Body Mass 2018-12-12 00:00:00 32.6 kg/m2 [facility]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 BP Systolic 2018-12-12 00:00:00 162 mm[Hg] [facility] Body Weight 2018-12-12 00:00:00 3328 [oz_av] [facility] BP Diastolic 2018-08-22 00:00:00 84 mm[Hg] [facility] Height 2018-08-22 00:00:00 67 [in_i] [facility] BMI (Body Mass 2018-08-22 00:00:00 32.7 kg/m2 [facility]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 BP Systolic 2018-08-22 00:00:00 163 mm[Hg] [facility] Body Weight 2018-08-22 00:00:00 3344 [oz_av] [facility] BP Diastolic 2018-06-07 00:00:00 84 mm[Hg] [facility] Height 2018-06-07 00:00:00 67 [in_i] [facility] BMI (Body Mass 2018-06-07 00:00:00 31.8 kg/m2 [facility]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 BP Systolic 2018-06-07 00:00:00 148 mm[Hg] [facility] Body Weight 2018-06-07 00:00:00 3248 [oz_av] [facility] BP Diastolic 2018-05-17 00:00:00 82 mm[Hg] [facility] Height 2018-05-17 00:00:00 67 [in_i] [facility] BMI (Body Mass 2018-05-17 00:00:00 32.6 kg/m2 [facility]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 BP Systolic 2018-05-17 00:00:00 160 mm[Hg] [facility] Body Weight 2018-05-17 00:00:00 3328 [oz_av] [facility] Procedures Procedure Date / Time Performed Performing Clinician Aileen e HEMOGLOBIN AND 2022-04-09 09:47:38 [facility] of HEMATOCRIT, BLOOD Medicine Back [facility] Shoulder [facility] Plan of Care Planned Activity Planned Date Details Comments Source Future Scheduled 2022-04-23 TESTOSTERONE-TOTAL(URO Expected: [facility] Test 00:00:00 DEPT) [code = 2986-8] 04/23/2022 of Med icine (Approximate), Expires: 05/10/2022 Future Scheduled 2022-04-23 SHBG(URO DEPT) [facility] = [facility] Test 00:00:00 02650] 04/23/2022 of Medicine (Approximate), Expires: 05/10/2022 Future Scheduled 2022-04-23 SENSITIVE Expected: [facility]a ege Test 00:00:00 ESTRADIOL,MALE(URO 04/23/2022 of Medici ne DEPT) [code = 2243-4] (Approximate), Expires: 05/10/2022 Future Scheduled 2022-04-23 PSA TOTAL(URO DEPT) Expected: [facility] or College Test 00:00:00 [code = 2857-1] 04/23/2022 of Medicine (Approximate), Expires: 05/10/2022 Future Scheduled 2022-04-09 CT ABDOMEN PELVIS WO 1 Occurrences [facility] Test 09:49:14 CONTRAST [code = 50269] starting of M edicine 04/09/2022 until 04/09/2023 Future Scheduled 2022-04-09 HEMOGLOBIN AND Ordered: [facility] Co llege Test 09:47:38 HEMATOCRIT, BLOOD [code 04/09/2022 of M edicine = 13751-0] Future Scheduled 2022-04-09 Screening for malignant [facility] Test 08:54:31 neoplasm of colon of Medicin e (procedure) [code = 284248100] Future Scheduled 2022-04-09 COVID-19 Vaccine (#1) [facility] Test 08:54:31 [code = COVID-19 of Medicine Vaccine (#1)] Future Scheduled 2022-04-09 BMI Follow Up Plan [facility] College Test 08:54:31 [code = BMI Follow Up of Med icine Plan] Future Scheduled 2022-04-09 Hepatitis C screening Ba or College Test 08:54:31 (procedure) [code = of Medic ine [id number]] Future Scheduled 2022-04-09 ZOSTER VACCINE (1 of 2) [facility] College Test 08:54:31 [code = ZOSTER VACCINE of Me dicine (1 of 2)] Future Scheduled 2022-04-09 Medicare Awv (Initial) [facility] Test 08:54:31 [code = Medicare Awv of Medi cine (Initial)] Future Scheduled 2022-04-09 Fall Screen [code = [facility] Test 08:54:31 Fall Screen] of Medicine Future Scheduled 2022-04-09 Pneumococcal 65+ (1 - [employer] [facility] 08:54:31 PCV) [code = of Medicine Pneumococcal 65+ (1 - PCV)] Future Scheduled 2022-04-09 FLU VACCINE > 6 MONTHS [employer] [facility] 08:54:31 [code = FLU VACCINE > 6 of M edicine MONTHS] Future Scheduled 2022-04-09 TETANUS SHOT (ADULT) [employer] [facility] 08:54:31 [code = TETANUS SHOT of Medi cine (ADULT)] Future Scheduled 2021-01-20 Screening for malignant [facility] Test 08:07:43 neoplasm of colon of Medicin e (procedure) [code = 414620799] Future Scheduled 2021-01-20 COVID-19 Vaccine (1) [employer] [facility] 08:07:43 [code = COVID-19 of Medicine Vaccine (1)] Future Scheduled 2021-01-20 BMI FOLLOW UP PLAN [facility] Test 08:07:43 [code = BMI FOLLOW UP of Med icine PLAN] Future Scheduled 2021-01-20 Hepatitis C screening [facility] [employer] Test 08:07:43 (procedure) [code = of Medic ine 822367105] Future Scheduled 2021-01-20 Human immunodeficiency [facility] [employer] Test 08:07:43 virus screening of Medicine (procedure) [code = 242816449] Future Scheduled 2021-01-20 ZOSTER VACCINE (1 of 2) [facility] [employer] Test 08:07:43 [code = ZOSTER VACCINE of Me dicine (1 of 2)] Future Scheduled 2021-01-20 MEDICARE AWV (Initial) [employer] 08:07:43 [code = MEDICARE AWV of Medi cine (Initial)] Future Scheduled 2021-01-20 FLU VACCINE > 6 MONTHS [employer] [facility] 08:07:43 [code = FLU VACCINE > 6 of M edicine MONTHS] Future Scheduled 2021-01-20 TETANUS SHOT (ADULT) [employer] [facility] 08:07:43 [code = TETANUS SHOT of Medi cine (ADULT)] Future Scheduled 2020-08-12 Screening for malignant [facility] Test 10:14:04 neoplasm of colon of Medicin e (procedure) [code = 075962929] Future Scheduled 2020-08-12 COVID-19 Vaccine (1) [facility] Test 10:14:04 [code = COVID-19 of Medicine Vaccine (1)] Future Scheduled 2020-08-12 BMI FOLLOW UP PLAN [facility] [employer] Test 10:14:04 [code = BMI FOLLOW UP of Med icine PLAN] Future Scheduled 2020-08-12 Hepatitis C screening [facility] Test 10:14:04 (procedure) [code = of Medic ine 721069056] Future Scheduled 2020-08-12 Human immunodeficiency B [facility] Test 10:14:04 virus screening of Medicine (procedure) [code = 513412784] Future Scheduled 2020-08-12 ZOSTER VACCINE (1 of 2) [facility] Test 10:14:04 [code = ZOSTER VACCINE of Il dicine (1 of 2)] Future Scheduled 2020-08-12 MEDICARE AWV (Initial) [facility] Test 10:14:04 [code = MEDICARE AWV of Medi cine (Initial)] Future Scheduled 2020-08-12 FLU VACCINE > 6 MONTHS [facility] Test 10:14:04 [code = FLU VACCINE > 6 of M edicine MONTHS] Future Scheduled 2020-08-12 TETANUS SHOT (ADULT) [facility] Test 10:14:04 [code = TETANUS SHOT of Medi cine (ADULT)] Future Scheduled 2020-08-12 CALCIUM IONIZED [code = Ordered: [facility] Test 10:09:42 14451-7] 08/12/2020 of Medicine Future Scheduled 2020-08-12 PHOSPHORUS [code = Ordered: [facility] Test 10:09:18 2777-1] 08/12/2020 of Medicine Future Scheduled 2020-08-12 CBC W/AUTO DIFF WITH Ordered: [facility] Test 10:09:18 PLATELETS [code = 08/12/2020 of Medicin e 58292-9] Future Scheduled 2020-08-12 URINALYSIS AUTO W/SCOPE Ordered: [facility] Test 10:09:18 [code = 51927-6] 08/12/2020 of Medicine Future Scheduled 2020-08-12 RANDOM URINE Ordered: [facility] Test 10:09:18 PROTEIN/CREATININE 08/12/2020 of Medici ne [code = 2890-2] Future Scheduled 2020-08-12 PTH INTACT [code = Ordered: [facility] Test 10:09:18 2731-8] 08/12/2020 of Medicine Future Scheduled 2020-08-12 CYSTATIN C [code = Ordered: [facility] Test 10:09:17 NOCPT] 08/12/2020 of Medicine Future Scheduled 2020-08-12 BASIC METABOLIC PANEL Ordered: [facility] Test 10:09:17 [code = 99525-5] 08/12/2020 of Medicine Future Scheduled 2020-08-12 MAGNESIUM [code = Ordered: [facility] Test 10:09:17 19810-5] 08/12/2020 of Medicine Diagnostic Test 2019-09-17 CYSTOSCOPY [code = Expected: [facility] Pending 00:00:00 [id number]] 09/17/2019, of Medicine Expires: 08/16/2020 Diagnostic Test 2019-08-31 TESTOSTERONE-TOTAL(URO Expected: [facility] Pending 00:00:00 DEPT) [code = 2986-8] 08/31/2019 of Med icine (Approximate), Expires: 09/16/2019 Diagnostic Test 2019-08-31 SHBG(URO DEPT) [code = Expected: [facility] Pending 00:00:00 69741] 08/31/2019 of Medicine (Approximate), Expires: 09/16/2019 Diagnostic Test 2019-08-31 ESTRADIOL,FEMALE(URO Expected: [facility] Pending 00:00:00 DEPT) [code = 2243-4] 08/31/2019 of Med icine (Approximate), Expires: 09/16/2019 Diagnostic Test 2019-08-31 PSA TOTAL(URO DEPT) Expected: [facility] Pending 00:00:00 [code = 2857-1] 08/31/2019 of Medicine (Approximate), Expires: 09/16/2019 Diagnostic Test 2018-12-27 TESTOSTERONE-TOTAL(URO Expected: [facility] Pending 00:00:00 DEPT) [code = 2986-8] 12/27/2018 of Med icine (Approximate), Expires: 01/12/2019 Diagnostic Test 2018-12-27 SHBG(URO DEPT) [code = Expected: [facility] Pending 00:00:00 33417] 12/27/2018 of Medicine (Approximate), Expires: 01/12/2019 Diagnostic Test 2018-12-27 ESTRADIOL(URO DEPT) Expected: [facility] [place] Pending 00:00:00 [code = 2243-4] 12/27/2018 of Medicine (Approximate), Expires: 01/12/2019 Diagnostic Test 2018-12-27 PSA TOTAL(URO DEPT) Expected: [facility] [place] Pending 00:00:00 [code = 2857-1] 12/27/2018 of Medicine (Approximate), Expires: 01/12/2019 Future Scheduled HEMOGLOBIN AND Ordered: [facility] Test HEMATOCRIT, BLOOD [code 12/13/2018 of edicine = 56942-3] Future Scheduled HEMOGLOBIN A1C [[facility] = [facility] 4548-4] 12/13/2018 of Medicine Future Scheduled COLON CANCER SCREENING: [facility] Test COLONOSCOPY [code = of Medic ine COLON CANCER SCREENING: COLONOSCOPY] Future Scheduled MEDICARE AWV [code = [facility] MEDICARE AWV] of Medicine Future Scheduled BMI FOLLOW UP PLAN [facility] [employer] [facility] [code = BMI FOLLOW UP of Med icine PLAN] Future Scheduled HEPATITIS C SCREENING [employer] [code = HEPATITIS C of Medic ine SCREENING] Future Scheduled HIV SCREENING [code = [employer] HIV SCREENING] of Medicine Future Scheduled FLU VACCINE > 6 MONTHS [facility] [code = FLU VACCINE > 6 of edicine MONTHS] Future Scheduled TETANUS SHOT (ADULT) [employer] [facility] [code = TETANUS SHOT of Medi cine (ADULT)] Future Scheduled HEMOGLOBIN AND Ordered: [facility] [employer] HEMATOCRIT, BLOOD [code 08/17/2019 of edicine = 83467-4] Future Scheduled URINALYSIS AUTO W/SCOPE Ordered: [facility] [employer] Test [code = 46481-2] 08/17/2019 of Medicine Future Scheduled CULTURE, Ordered: [facility] URINE/SENSITIVITY ON 08/17/2019 of Medi cine ALL [code = 97184-9] Future Scheduled US RENAL BILATERAL [facility] [employer] [facility] [code = 42828] of Medicine Future Scheduled COLON CANCER SCREENING: [facility] [employer] Test COLONOSCOPY [code = of Medic ine COLON CANCER SCREENING: COLONOSCOPY] Future Scheduled TETANUS SHOT (ADULT) [employer] [code = TETANUS SHOT of Medi cine (ADULT)] Future Scheduled BMI FOLLOW UP PLAN [employer] [facility] [code = BMI FOLLOW UP of Med icine PLAN] Future Scheduled HEPATITIS C SCREENING [employer] [facility] [code = HEPATITIS C of Medic ine SCREENING] Future Scheduled HIV SCREENING [code = [employer] HIV SCREENING] of Medicine Future Scheduled MEDICARE AWV (Initial) [employer] [code = MEDICARE AWV of Medi cine (Initial)] Future Scheduled FLU VACCINE > 6 MONTHS [employer] [facility] [code = FLU VACCINE > 6 of M edicine MONTHS] Future Scheduled Screening for malignant [facility] [employer] [facility] neoplasm of colon of Medicin e (procedure) [code = 406428583] Future Scheduled COVID-19 Vaccine (1) [employer] [facility] [code = COVID-19 of Medicine Vaccine (1)] Future Scheduled BMI FOLLOW UP PLAN [employer] [facility] [code = BMI FOLLOW UP of Med icine PLAN] Future Scheduled Hepatitis C screening [employer] (procedure) [code = of Medic ine 200005107] Future Scheduled Human immunodeficiency [employer] virus screening of Medicine (procedure) [code = 567036113] Future Scheduled ZOSTER VACCINE (1 of 2) [facility] [employer] Test [code = ZOSTER VACCINE of Me dicine (1 of 2)] Future Scheduled MEDICARE AWV (Initial) [employer] [facility] [code = MEDICARE AWV of Medi cine (Initial)] Future Scheduled FLU VACCINE > 6 MONTHS [employer] [facility] [code = FLU VACCINE > 6 of M edicine MONTHS] Future Scheduled TETANUS SHOT (ADULT) [employer] [facility] [code = TETANUS SHOT of Medi cine (ADULT)] Future Scheduled US RENAL BILATERAL 1 Occur[facility] [employer] [facility] [code = 55451] starting of Medicine 08/17/2019 until 08/16/2020 Encounters Start End Encounter Admission Attending Care Care Encounter Source Date/Time Date/Time Type Type Clinicians Facility Department ID 2022-04-27 Outpatient YOANDY Briones [facility] [id number] Common 09:00:02 [facility] [address] [facility] 2021-12-24 Outpatient YOANDY Briones [facility] [id number] Common 13:11:01 [place] [facility] 2021-10-13 Outpatient [facility]iones[facility] [id number] Common 14:21:02 [place] [facility] 2021-10-08 Outpatient Briones, [facility] [id number] Common 15:02:00 [place] [facility] 2022-04-09 2022-04-09 Office WALLY MATHEWS [id number] [facility] 09:06:32 09:58:[address] [facility] 350.1.13.21 College Y 0.2.7.2.686 of [id number] Medi sahara 300 e 2022-04-09 2022-04-09 Orders Reid [facility] [id number] 00:00:00 00:00:00 Only [facility] 2021-12-29 2021-12-29 (TEL) [facility] [id number] Co mmon 00:00:00 00:00:00 [facility] 2021-12-25 2021-12-25 SUB ANNUAL STLC STLC [id number] Common 00:00:00 00:00:00 [facility] WELLNESS - [facility] VISIT [facility] 2021-12-25 2021-12-25 (TEL) STLMLC STLC [id number] Co mmon 00:00:00 00:00:00 [facility] 2021-12-25 2021-12-25 OFFICE STLC STLC [id number] Co mmon 00:00:00 00:00:00 VISIT Spirit ESTAB PT - CHI LEVEL 4 [facility] 2021-12-08 2021-12-08 (TEL) STLMLC STLC [id number] Co mmon 00:00:00 00:00:00 [facility] 2021-10-09 2021-10-09 Outpatient A_Byrd MMG MM[facility] [id number] [place] 12:30:00 12:30:00 [facility] 2021-10-08 2021-10-08 OFFICE STLC [facility] [id number] Co mmon 00:00:00 00:00:00 VISIT NEW Spir it PT LEVEL 3 - [facility] 2021-01-20 2021-01-20 Office WALLY GAVIRIA [id number] [facility] 07:58:25 09:02:30 Visit RAMESH AMBULATOR 350.1.13.21 College Y 0.2.7.2.686 of [id number] [facility] 300 e 2020-12-20 2020-12-20 Outpatient A_Byrd [facility] [id number] [place] 04:22:00 04:22:00 1001 Medical [facility] 2020-10-24 2020-10-24 [facility]patient [facility] [id number] [place] 01:19:00 01:19:00 0805 Medical [facility] 2020-09-19 2020-09-19 Outpatient [facility] [id number] [place] 02:11:00 02:11:00 0701 Medical Group 2020-08-16 2020-08-16 Outpatient [facility] [id number] [place] 01:02:00 01:02:00 0528 Medical [facility] 2020-08-12 2020-08-12 Office WALLY Shabazz [id number] [facility] 09:41:27 10:41:27 Visit [place] AMBULATOR 350.1.13.21 College Chandrakant Y 0.2.7.2.686 of [id number] [facility] 335 e 2020-07-25 2020-07-25 [place] - [id number] [place] 00:00:00 00:00:00 MD Anirudh: [address] Group Rosine Earle - [address], [facility], [place] [address] , Ph. 2020-07-22 2020-07-22 Office WALLY Gaviria [id number] [place] [address] 07:53:14 08:03:14 Visit Ramesh AMBULATOR 350.1.13.21 College Y 0.2.7.2.686 of [id number] [facility] 300 e 2020-07-22 2020-07-22 Office WALLY Gaviria 1.2.840.114 [id number] 07:53:14 08:03:14 Visit Ramesh AMBULATOR 350.1.13.21 Y 0.2.7.2.686 [id number] 300 2020-07-21 2020-07-21 [facility]patient [facility] [id number] [place] 06:06:00 06:06:00 0502 [facility] 2020-07-11 2020-07-11 [facility]patient [facility] [id number] 021 [place] 01:03:00 01:03:00 0422 [facility] 2020-06-06 2020-06-06 Outpatient A_Byrd MMG [facility] [id number] [place] 01:11:00 01:11:00 0318 [facility] 2020-05-02 2020-05-02 Outpatient A_Byrd MMG [facility] [id number] [place] 01:03:00 01:03:00 0211 [facility] 2020-03-28 2020-03-28 [facility]patient [facility] [id number] [place] 01:06:00 01:06:00 0107 [facility] 2020-02-22 2020-02-22 [place] [id number] 020 [place] 01:04:00 01:04:00 1203 [facility] 2020-01-05 2020-01-05 [place] [id number] 020 [place] 01:05:00 01:05:00 1016 [facility] 2019-11-30 2019-11-30 Outpatient A_Byrd MMG MM [id number] 020 [place] 12:58:00 12:58:00 0910 [facility] 2019-08-17 2019-08-17 Office WALLY Mathews 1.2.840.114 [id number] [facility] 08:36:24 09:06:24 Visit Basil AMBULATOR 350.1.13.21 College Y 0.2.7.2.686 of [id number] Medi [facility]hara 300 e 2019-08-17 2019-08-17 Office WALLY Mathews 1.2.840.114 [id number] 08:36:24 09:06:24 Visit Basil AMBULATOR 350.1.13.21 Y 0.2.7.2.686 [id number] 300 2019-08-10 2019-08-10 Tommy Aguilera [facility] [place] - [address] [place] 00:00:00 00:00:00 MD Anirudh: [address], [facility] [place] [address] , Ph. 2019-05-22 2019-05-22 Outpatient Ale [facility] [id number] [place] 05:06:00 05:06:00 0302 [facility] 2019-03-13 2019-03-13 Tommy Black [facility] [place] - [id number] [place] 00:00:00 00:00:00 MD Anirudh: [address], [facility] [place] [address] , Ph. 2019-02-02 2019-02-02 Tommy Black [facility] [place] - [id number] [place] 00:00:00 00:00:00 MD Anirudh: [address], [facility] [place] [address] , Ph. 2018-12-13 2018-12-13 Office WALLY Gaviria 1.2.840.[id number] [place] [address] 09:23:54 09:33:54 Visit Ramesh AMBULATOR 350.1.13.21 College Y 0.2.7.2.686 of [id number] Medi [facility] 300 e 2018-12-13 2018-12-13 Office WALLY Gaviria 1.2.840.114 [id number] 09:23:54 09:33:54 Visit Ramesh AMBULATOR 350.1.13.21 Y 0.2.7.2.686 [id number] 300 2018-12-12 2018-12-12 Tommy Black [facility] [place] - [id number] [place] 00:00:00 00:00:00 MD Anirudh: [address], [facility] [place] [address] , Ph. 2018-08-22 2018-08-22 [place] - [id number] [place] 00:00:00 00:00:00 MD Anirudh: [address], [facility] [place] [address] , Ph. 2018-06-07 2018-06-07 Tommy Black [facility] [place] - [id number] [place] 00:00:00 00:00:00 MD Anirudh: [address], [facility] [place] [address] , Ph. 2018-05-17 2018-05-17 Tommy Black [facility] [place] - [address] [place] 00:00:00 00:00:00 MD Anirudh: [address] [address], [facility] [place] [address] , Ph. Results Test Description Test Time Test Comments Results Result Comments Source ELECTROLYTES 2017-12-27 09:19:00 Test Item Value Reference Range Interpretation Comme nts SODIUM (BEAKER) (test code = 381) 140 meq/L 136-145 POTASSIUM (BEAKER) (test code = 379) 4.9 meq/L 3.5-5.1 CHLORIDE (BEAKER) (test code = 382) 103 meq/L 98-107 CO2 (BEAKER) (test code = 355) 29 meq/L 22-29 BUN AND [id number] 09:19:00 Test Item Value Reference Range Interpretation Comments BLOOD UREA NITROGEN 12 mg/dL 7-21 (BEAKER) (test code = 354) CREATININE (BEAKER) 1.09 mg/dL 0.57-1.25 (test code = 358) EGFR (ADRIENNE) (test 69 mL/min/1.73 ESTIMA NICKY GFR IS code = 1092) sq m NOT ACCURATE CREATININE CLEARANCE IN PREDICTING GLOMERULAR FILTRATION RATE . ESTIMATED GFR I S NOT APPLICABLE FOR DIALYSIS TANIA ORO [id number] 09:01:00 Test Item Value Reference Range Interpretation Comments HEMOGLOBIN (ADRIENNE) (test code = 16.9 GM/DL 13.7-17.5 410)
[2022-07-29] MEDS ORDERED: MORPHINE 2 MG/ML SYR ONE (17:57)
[2022-07-29] MEDS ORDERED: MORPHINE 4 MG/ML SYR ONE (17:57)
[2022-07-29] MEDS ORDERED: LIDOCAINE 4% PATCH ONE (17:58)
[2022-07-29] MEDS ORDERED: dexAMETHasone 10 MG/ML VIAL ONE (17:58)
[2022-07-29 18:45] LABS: Specific Gravity 1.012 (1.005-1.030); Urine Bacteria None Seen /HPF (<20); Urine Bilirubin NEGATIVE (Negative); Urine Blood Negative (Negative); Urine Clarity Clear (Clear); Urine Color Light-Yellow (Yellow); Urine Glucose NEGATIVE (Negative); Urine Mucus Slight /HPF (None Seen); Urine Protein NEGATIVE (Negative); Urine RBC <5 /HPF (None Seen); Urine Urobilinogen Normal (Normal)
--- NOTE | 2022-07-29 20:49 | RAD REPORT ---
EXAM DESCRIPTION: MRI - Lumbar Spine Roberta Styles- 07/29/2022 8:39 pm CLINICAL HISTORY: Lower back pain;Weakness COMPARISON: <Comparisons> FINDINGS: Vertebral body heights are within normal limits. No aggressive marrow pattern is observed. No fracture is suspected. The conus medullaris terminates at a normal level. No thickening of the cauda equina or clumping of n erve roots seen. L1-2 level: No significant findings. L2-3 level: Mild posterior disc bulge is present. L3-4 level: Broad-based posterior disc bulge with mild ligamentum flavum hypertrophy. Mild central ca nal stenosis. L4-5 level: Degenerative disc disease with moderate posterior disc bulge and mild facet and ligamentu m flavum hypertrophy. Moderate central canal stenosis. L5-S1 level: Broad-based posterior disc bulge is seen asymmetric to the left foraminal region. Postsu rgical changes of previous laminectomy. Mild central canal narrowing. IMPRESSION: Moderate spondylosis is present at L4-5 Postsurgical changes at L5-S1.
--- NOTE | 2022-07-29 22:04 | ER ---
[facility] Name: Thor Sims Age: 67 yrs Sex: Male : 1955 Arrival Date: 07/29/2022 Time: 17:12 Bed 12 Private MD: Diagnosis: Intervertebral disc disorders with radiculopathy, lumbar region;Low back pain Presentation: 07/29 17:18 Chief complaint: Patient states: Low back pain for the last 3 days. Pt had a prior nj1 injury requiring a laminectomy in 1996, states his back normally bothers him some on/off but has never been this bad. Took aleve today with no relief. 17:18 Coronavirus screen: Vaccine status: Patient reports being unvaccinated. Ebola Screen: [facility] No symptoms or risks identified at this time. Initial Sepsis Screen: Does the patient meet any 2 criteria? No. Patient's initial sepsis screen is negative. Does the patient have a suspected source of infection? No. Patient's initial sepsis screen is negative. Risk Assessment: Do you want to hurt yourself or someone else? Patient reports no desire to harm self or others. Onset of symptoms was July 27, 2022. 17:18 Method Of Arrival: Ambulatory [facility] 17:18 Acuity: JASON 3 [facility] Historical: - Allergies: 17:28 Iodinated Contrast Media - IV Dye; nj1 17:28 Iodine; nj1 - Home Meds: 17:28 benazepril 40 mg oral tablet 1 tab daily [Active]; il1 - PMHx: 17:28 Hypertension; nj1 - Immunization history:: Client reports having NOT received the Covid vaccine. - Social history:: Smoking status: Patient denies any tobacco usage or history of. Screenin:21 [facility] ED Fall Risk Assessment (Adult) History of falling in the last 3 months, ll3 including since admission No falls in past 3 months (0 pts) Confusion or Disorientation No (0 pts) Intoxicated or Sedated No (0 pts) Impaired Gait No (0 pts) Mobility Assist Device Used No (0 pt) Altered Elimination No (0 pt) Score/Fall Risk Level 0 - 2 = Low Risk Oriented to surroundings, Maintained a safe environment, Educated pt \T\ family on fall prevention, incl call for assistance when getting out of bed. Abuse screen: Denies threats or abuse. Denies injuries from another. Nutritional screening: No deficits noted. Tuberculosis screening: No symptoms or risk factors identified. Assessment: 19:47 General: Appears uncomfortable, Behavior is calm, cooperative. Pain: Complains of pain ll3 in back Pain does not radiate. Pain currently is 5 out of 10 on a pain scale. at worst was 10 out of 10 on a pain scale. Quality of pain is described as burning, Pain began 2-3 days ago. Is continuous. Neuro: Level of Consciousness is awake, alert, obeys commands, Oriented to person, place, time, situation. Derm: Skin is pink, warm \T\ dry. Musculoskeletal: Reports pain in back since 3 days. Pain is 5 out of 10 on a pain scale. 21:58 Reassessment: Patient and/or family updated on plan of care and expected duration. Pain ll3 level reassessed. Patient is alert, oriented x 3, equal unlabored respirations, skin warm/dry/pink. States pain is 5/10 Patient states symptoms have improved. Vital Signs: 17:18 BP 158 / 91; Pulse 66; Resp 18; Temp 97.7(O); Pulse Ox 96% on R/A; Weight 102.06 kg; nj1 Height 5 ft. 8 in. ; Pain 9/10; 21:58 BP 169 / 86; Pulse 80; Resp 16; Pulse Ox 96% on R/A; ll3 17:18 Body Mass Index 34.21 (102.06 kg, 172.72 cm) nj1 17:18 Pain Scale: Adult [facility] ED Course: 17:13 Patient arrived in ED. ts1 17:20 Forrest Pearce PA is PHCP. cp 17:20 Thom Trinidad DO is Attending Physician. cp 17:28 Triage completed. nj1 17:29 Arm band placed on. nj1 17:44 Torri Richmond, OSWALDO is Primary Nurse. db 20:41 MRI Lumbar Spine wo Con In Process Unspecified. EDMS 22:03 Ezequiel Tan MD is Referral Physician. cp 22:21 Patient has correct armband on for positive identification. Bed in low position. Call ll3 light in reach. Side rails up X 1. Adult w/ patient. 22:21 No provider procedures requiring assistance completed. Patient did not have IV access ll3 during this emergency room visit. Administered Medications: 17:55 Drug: Lidoderm Topical Patch 5 % (700 mg/patch) 1 patches {Note: lower back.} Route: db Topical; Site: affected area; 21:23 Follow up: Response: No adverse reaction; Marked relief of symptoms ll3 18:00 Drug: morphine IM 6 mg Route: IM; Site: right deltoid; db 21:23 Follow up: Response: No adverse reaction; Marked relief of symptoms ll3 18:01 Drug: Dexamethasone IM 10 mg Route: IM; Site: left deltoid; db 21:23 Follow up: Response: No adverse reaction; Marked relief of symptoms ll3 Medication: 22:22 VIS not applicable for this client. ll3 Outcome: 22:03 Discharge ordered by MD. jolanta 22:18 Patient left the ED. geena 22:21 Discharged to home ambulatory, with significant other. ll3 22:21 Condition: stable 22:21 Discharge instructions given to patient, significant other, Instructed on discharge instructions, follow up and referral plans. medication usage, Demonstrated understanding of instructions, follow-up care, medications, Prescriptions given X 3. Signatures: Dispatcher [employer] EDMS Forrest Pearce PA PA cp Loubet, Lynsea RN RN ll3 Torri Richmond RN RN Queta Dominguez RN RN mb9 Vero Davidson RN RN nj1 Odette Clayton PAS PAS ts1
--- NOTE | 2022-07-29 22:04 | EDPHYS ---
Physician Documentation [facility] Name: Thor Sims Age: 67 yrs Sex: Male : 1955 Arrival Date: 07/29/2022 Time: 17:12 Bed 12 Private MD: ED Physician Thom Trinidad HPI: 07/29 17:40 This 67 yrs old Male presents to ER via Ambulatory with complaints of Back Pain. cp 17:40 The patient presents with pain that is chronic, with no known mechanism of injury. cp 17:40 The symptoms are located in the low back. cp 17:40 Patient is a 67-year-old male with a past medical history of hypertension and chronic cp low back pain who presents to the emergency department with complaints of increasing low back pain over the last several days Patient denies any specific injury and states pain has been increasing over the last several days and has become worse today. Patient denies any bowel or bladder incontinence, denies any saddle anesthesia but complains of weakness to legs. Patient reports history of low back surgery and cauda equina in the past and denies any chronic pain medications. Historical: - Allergies: 17:28 Iodinated Contrast Media - IV Dye; nj1 17:28 Iodine; nj1 - Home Meds: 17:28 benazepril 40 mg oral tablet 1 tab daily [Active]; nj1 - PMHx: 17:28 Hypertension; nj1 - Immunization history:: Client reports having NOT received the Covid vaccine. - Social history:: Smoking status: Patient denies any tobacco usage or history of. ROS: 17:45 Constitutional: Negative for body aches, chills, fever, poor PO intake. cp 17:45 Cardiovascular: Negative for chest pain, palpitations. cp 17:45 Respiratory: Negative for cough, shortness of breath, wheezing. 17:45 Eyes: Negative for injury, pain, redness, and discharge. cp 17:45 Abdomen/GI: Negative for abdominal pain, nausea, vomiting, and diarrhea, bowel incontinence. 17:45 Back: Positive for pain at rest, pain with movement, of the lumbar area, Negative for injury or acute deformity. 17:45 : Negative for urinary symptoms, bladder incontinence, testicular pain 17:45 Neuro: Positive for weakness, of the right leg and left leg, Negative for altered cp mental status, headache, numbness, tingling. 17:45 All other systems are negative. Exam: 17:50 Constitutional: The patient appears in no acute distress, alert, awake, cp non-diaphoretic, non-toxic, well developed, well nourished, in obvious pain, uncomfortable. 17:50 Head/Face: Normocephalic, atraumatic. cp 17:50 Eyes: Periorbital structures: appear normal, Conjunctiva: normal, no exudate, no injection, Sclera: no appreciated abnormality, Lids and lashes: appear normal, bilaterally. 17:50 ENT: External ear(s): are unremarkable, Nose: is normal, Mouth: Lips: moist, Oral mucosa: pink and intact, moist, Posterior pharynx: is normal, airway is patent, no erythema, no exudate. 17:50 Neck: ROM/movement: is normal, is supple, without pain, no range of motions limitations. 17:50 Chest/axilla: Inspection: normal. 17:50 Cardiovascular: Rate: normal, Rhythm: regular, Edema: is not appreciated, JVD: is not appreciated. 17:50 Respiratory: the patient does not display signs of respiratory distress, Respirations: normal, no use of accessory muscles, no retractions, labored breathing, is not present, Breath sounds: are clear throughout, no decreased breath sounds, no stridor, no wheezing. 17:50 Abdomen/GI: Inspection: abdomen appears normal, Bowel sounds: active, all quadrants, Palpation: abdomen is soft and non-tender, in all quadrants. 17:50 Back: pain, that is severe, of the lumbar area, ROM is painful, with all movement. 17:50 Neuro: Orientation: to person, place \T\ time. Mentation: is normal, Motor: moves all fours, strength is normal, Sensation: is normal. Vital Signs: 17:18 BP 158 / 91; Pulse 66; Resp 18; Temp 97.7(O); Pulse Ox 96% on R/A; Weight 102.06 kg; nj1 Height 5 ft. 8 in. ; Pain 9/10; 21:58 BP 169 / 86; Pulse 80; Resp 16; Pulse Ox 96% on R/A; ll3 17:18 Body Mass Index 34.21 (102.06 kg, 172.72 cm) nj1 17:18 Pain Scale: Adult nj1 MDM: 17:27 Patient medically screened. cp 18:00 Differential diagnosis: ruptured disc, spinal stenosis, cauda equina, bulging disc, cp sciatica. 22:02 Data reviewed: vital signs, nurses notes, lab test result(s), radiologic studies, MRI. 22:02 Consideration of Admission/Observation Escalation of care including cp admission/observation considered. I considered the following discharge prescriptions or medication management in the emergency department Medications were administered in the Emergency Department. See MAR. Care significantly affected by the following chronic conditions: Hypertension. Counseling: I had a detailed discussion with the patient and/or guardian regarding: the historical points, exam findings, and any diagnostic results supporting the discharge/admit diagnosis, lab results, radiology results, to return to the emergency department if symptoms worsen or persist or if there are any questions or concerns that arise at home. Response to treatment: the patient's symptoms have markedly improved after treatment, and as a result, I will discharge patient. 07/29 17:36 Order name: Urinalysis W/Microscopic; Complete Time: 18:47 cp 07/29 18:47 Interpretation: Reviewed. 07/29 17:38 Order name: MRI Lumbar Spine wo Con; Complete Time: 20:53 cp Administered Medications: 17:55 Drug: Lidoderm Topical Patch 5 % (700 mg/patch) 1 patches {Note: lower back.} Route: db Topical; Site: affected area; 21:23 Follow up: Response: No adverse reaction; Marked relief of symptoms ll3 18:00 Drug: morphine IM 6 mg Route: IM; Site: right deltoid; db 21:23 Follow up: Response: No adverse reaction; Marked relief of symptoms ll3 18:01 Drug: Dexamethasone IM 10 mg Route: IM; Site: left deltoid; db 21:23 Follow up: Response: No adverse reaction; Marked relief of symptoms ll3 Disposition Summary: 07/29/22 22:03 Discharge Ordered Location: Home cp Problem: an acute exacerbation cp Symptoms: have improved cp Condition: Stable cp Diagnosis - Intervertebral disc disorders with radiculopathy, lumbar region cp - Low back pain cp Followup: cp - With: Ezequiel Tan MD - When: 1 week - Reason: Recheck today's complaints Discharge Instructions: - Discharge Summary Sheet cp - Chronic Back Pain cp - Herniated Disk cp - Lumbosacral Radiculopathy cp - Back Exercises cp Forms: - Medication Reconciliation Form cp - Thank You Letter cp - Antibiotic Education cp - Prescription Opioid Use cp Prescriptions: - Tramadol 50 mg Oral Tablet - take 1 tablet by ORAL route every 8 hours as needed; 12 tablet; Refills: 0, cp Product Selection Permitted - Medrol (Hong) 4 mg Oral Tablets, Dose Pack - take 1 tablet by ORAL route as directed - follow package instructions; 1 cp packet; Refills: 0, Product Selection Permitted - methocarbamol 500 mg Oral Tablet - take 1 tablet by ORAL route 3-4 times daily; 30 tablet; Refills: 0, Product cp Selection Permitted Signatures: Dispatcher [employer] EDMS Forrest Pearce PA PA cp Torri Richmond RN RN db Vero Davidson RN RN nj1 Ajay Clarke RN ll3 Corrections: (The following items were deleted from the chart) 07/30 18:50 07/29 17:40 Patient is a 67-year-old male with a past medical history of hypertension cp and chronic low back pain who presents to the emergency department with complaints of increasing low back pain over the last several days Patient denies any specific injury and states pain has been increasing over the last several days and has become worse today. Patient denies any bowel or bladder incontinence, denies any saddle anesthesia but complains of weakness to legs. Patient reports history of low back surgery in the past and denies any chronic pain medications. cp
[2022-07-29 22:28] VITALS: TEMP 97.7; O2SAT 96
[2022-07-29 22:29] VITALS: BP 169/86
== END 2022-07-29 22:18 | disposition home or self-care (01) ==
LOC: ER 17:12
DX: M51.16 Intervertebral disc disorders with radiculopathy, lumbar region (principal); Z91.041 Radiographic dye allergy status; Z91.048 Other nonmedicinal substance allergy status
CPT/HCPCS: 81001; 72148; J2001; J1100; J2270